=== PATIENT | male | born 1975 | race Caucasian/White ===

== ENCOUNTER → 2019-02-23 12:34 | Outpatient (CLI) | payer SELFPAY ==
[2019-02-23 12:54] LABS: Hematocrit 46.4 % (41-53); Hemoglobin 16.1 g/dL (13.5-17.5); Mean Corpuscular HGB Conc 34.7 % (30-36); Mean Corpuscular Hemoglobin 29.6 PG (26-34); Mean Corpuscular Volume 85.1 fL (80-100); Platelet Count 282 X10^3/uL (150-400); Red Blood Cell Count 5.45 X10^6/uL (4.5-5.9); Red Cell Distribution Width 13.5 % (11.6-14.8); White Blood Cell Count 10.2 X10^3/uL (4.5-11.0)
[2019-02-23 13:44] LABS: Alanine Aminotransferase 53 IU/L (21-72); Albumin Globulin Ratio 1.3 (1.0-2.8); Alkaline Phosphatase 70 U/L (38-126); Aspartate Aminotransferase 28 IU/L (17-59); Bilirubin Total 0.9 mg/dL (0.2-1.3); Blood Urea Nitrogen 14 mg/dL (9-20); Calcium 9.9 mg/dL (8.4-10.2); Carbon Dioxide 26 mmol/L (22-32); Chloride 101 mmol/L (98-107); Cholesterol 240 mg/dL (140-199); Estimated Glomerular Filt Rate > 60.0 mL/min (>60); Globulin 3.8 g/dL (1.7-4.1); Glucose 91 mg/dL (70-100); HDL Cholesterol 31 mg/dL (40-60); HEMOLYSIS < 15 (0-50); LDL Cholesterol Calculated 148 mg/dL (<100); Potassium 4.1 mmol/L (3.4-5.1); Sodium 140 mmol/L (137-145); Total Protein 8.8 g/dL (6.3-8.2); Triglycerides 307 mg/dL (35-150)
[2019-02-23 14:15] LABS: Prostate Specific Antigen Scrn 1.08 ng/mL (0.1-4.0)
[2019-02-23 14:34] LABS: TSH w/ Reflex to FT4 2.43 uIU/mL (0.47-4.68)
[2019-03-01 14:13] LABS: Testosterone Free 44.4 pg/mL (35.0-155.0); Testosterone Total 237 ng/dL (250-1100)
== END ==
PROVIDERS: Visit Provider Nurse Practitioner
DX: Z00.00 Encounter for general adult medical examination without abnormal findings (principal); R53.83 Other fatigue
CPT/HCPCS: 36415; 80053; 80061; 84402; 84403; 84443; 85027; G0103

== ENCOUNTER → 2019-03-21 10:58 | Outpatient (CLI) | payer SELFPAY ==
[2019-03-21 12:00] LABS: Urine Drug scr, USCG NIDA See Separate Report
== END ==
PROVIDERS: PCP Nurse Practitioner
DX: Z02.1 Encounter for pre-employment examination (principal)
CPT/HCPCS: 81099

== ENCOUNTER → 2021-06-19 13:40 | Outpatient (CLI) | payer OTHER, SELFPAY ==
[2021-06-19 14:18] LABS: Add Manual Diff / Slide Review NO; Basophils Absolute Auto 100 /uL (0-100); Basophils Percent Auto 0.6 % (0-2); Eosinophils Absolute Auto 100 /uL (0-450); Eosinophils Percent Auto 1.8 % (2-4); Hematocrit 45.3 % (41-53); Hemoglobin 15.4 g/dL (13.5-17.5); Lymphocytes Absolute Auto 3900 /uL (1100-4500); Lymphocytes Percent Auto 46.6 % (25-40); Mean Corpuscular HGB Conc 33.9 % (30-36); Mean Corpuscular Hemoglobin 28.6 PG (26-34); Mean Corpuscular Volume 84.5 fL (80-100); Monocytes Absolute Auto 600 /uL (0-900); Neutrophils Absolute Auto 3700 /uL (1500-7000); Platelet Count 229 X10^3/uL (150-400); Red Blood Cell Count 5.37 X10^6/uL (4.5-5.9); Red Cell Distribution Width 14.3 % (11.6-14.8); White Blood Cell Count 8.5 X10^3/uL (4.5-11.0)
[2021-06-19 14:28] LABS: INR 1.1 (0.9-1.3); Prothrombin Time 11.7 SECONDS (10.1-12.7)
[2021-06-19 14:39] LABS: Alanine Aminotransferase 42 IU/L (<50); Albumin 4.9 g/dL (3.5-5.0); Albumin Globulin Ratio 1.6 (1.0-2.8); Alkaline Phosphatase 75 U/L (38-126); Aspartate Aminotransferase 27 IU/L (17-59); BUN Creatinine Ratio 17.3 (6-22); Bilirubin Total 0.7 mg/dL (0.2-1.3); Blood Urea Nitrogen 13 mg/dL (9-20); Calcium 9.9 mg/dL (8.4-10.2); Carbon Dioxide 25 mmol/L (22-32); Chloride 105 mmol/L (98-107); Estimated Glomerular Filt Rate > 60.0 mL/min (>60); Glucose 88 mg/dL (70-100); HEMOLYSIS < 15 (0-50); Hemoglobin A1C% w Est Avg Glu 5.4 % (4.0-6.0); Potassium 4.2 mmol/L (3.4-5.1); Sodium 138 mmol/L (137-145); Total Protein 7.9 g/dL (6.3-8.2)
[2021-06-20 04:36] LABS: Fructosamine 246 umol/L (0-285)
== END ==
PROVIDERS: PCP Nurse Practitioner; Referring Provider Physician Assistant; Visit Provider Physician Assistant
DX: Z01.818 Encounter for other preprocedural examination (principal)
CPT/HCPCS: 36415; 80053; 82985; 83036; 85025; 85610

== ENCOUNTER 2021-09-03 11:15 | Outpatient (RCR) | payer OTHER, SELFPAY ==
--- NOTE | 2021-07-11 16:52 | PT.OIE ---
Current Diagnoses Pain in left knee (07/11/21) Stiffness of left knee, not elsewhere classified (07/11/21) Presence of left artificial knee joint (07/11/21) Visit Care Team Role Provider Type JANETT Delacruz Primary Care Provider Advanced Tool Grinding Technician Specialty: Family Practice Address: [address] [place] [address], [id number] Email: [email or web address] Miguel A Parikh MD Attending Provider Non-Staff Referring Provider Specialty: Medical Address: [address] [place] [address], [id number] Email: Physical Therapy Initial Evaluation PT-OP-A Visit Information Start: 07/11/21 16:20 Freq: Status: Active Protocol: Document 07/11/21 12:00 DCW (Rec: 07/11/21 16:39 DCW [id number]) Out-Patient Physical Therapy Visit Information Visit Information Visit Type Initial Evaluation Visit Start Time 12:00 Visit Stop Time 12:45 Total Visit Minutes 45 Visit Number 1 Number of SENIOR SOLUTIONS CONSULTANT Visits 0 Evaluation Information Evaluation Date 07/11/21 PT-OP-B Current Condition Start: 07/11/21 16:20 Freq: Status: Active Protocol: Document 07/11/21 12:00 DCW (Rec: 07/11/21 16:39 DCW [id number]) Current Condition History of Current Condition Onset Date 06/23/21 Current Complaints Pain and stiffness s/p L TKA History of Current Condition Pt is a 45 year old male presenting 18 days s/p L TKA. Pt reports that he injured his knees when he was [age] years olf, and then at the age of 14, was wrestling and injured them again, and was found to have had his knee cartilage fallen off. 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 Pt underwent a R TKA in March , notes he did PT for a bit, but was too busy with his kids to be able to follow- through, and put in a lot of work rehabbing himself. Notes he does have full ROM in his R , however bilaterally still has fairly severe quad atrophy , mainly due to the decades of having very poor knee extension due to joint degeneration. 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 Pt using bilateral axillary crutches, as he is unable to support himself with the right leg now that the left leg has undergone a TKA. Pt reports after his right TKA, his surgeon noted that his knee was the worst he had ever seen, however found out after his left TKA that the left was somehow even worse. 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 Notes his pain is almost unbearable at night , reporting a 9/10 pain which typically limits his sleep to ~1 hour, but the past two nights has been taking Ambien, which has allowed him to get 3-4 hours of sleep, which feels like I've dies and [facility]. Prior Treatments and Tests Prior PT following R TKA 4 months ago Treatment Goals Patient/Caregiver Goals To be able to get around better playing with his kids PT-OP-C Subjective Start: 07/11/21 16:20 Freq: Status: Active Protocol: Document 07/11/21 12:00 DCW (Rec: 07/11/21 16:39 [facility] [id number]) OP-PT Subjective Patient Comments Patient Comments My right knee isn't great after recovery, but it is still way better than I can ever remember it being. I already have better range of motion, and I mostly did that on my own. You won't have any trouble getting me to do what I need to do. Patient Questionnaires Lower Extremity Functional Scale LEFS Score 0% OP-PT Pain Assessment Pain Assessment Grid Paper Pain Assessment Grid Completed Yes Location Left Knee Intensity 9 Scale Used Numeric (0 - 10) Description Acute,Sharp Other Pain Aggravating Factors Increased pain at night PT-OP-H Neuro Start: 07/11/21 16:20 Freq: Status: Active Protocol: Document 07/11/21 12:00 DCW (Rec: 07/11/21 16:39 [facility] [id number]) Muscle Tone Tone Assessment Bilateral quads Extensor Tone Description Moderate Hypotonicity Muscle Tone Comments Moderate quad atrophy bilaterally PT-OP-J Posture/Palpation/Skin Start: 07/11/21 16:39 Freq: Status: Active Protocol: Document 07/11/21 12:00 DCW (Rec: 07/11/21 16:41 DCW [id number]) Skin Assessment Circumference Measurement 3 Location 10 cm superior to L knee joint Measurement (Centimeters) 46.1 Comments 42.5 2 Location L knee joint line Measurement (Centimeters) 56.2 Comments R=42.1 1 Location 10 cm inferior to L knee joint Measurement (Centimeters) 46.9 Comments R=35.0 Incisional Assessment Incision Appearance/Comments CDI, mild puckering along length of incision PT-OP-K Range of Motion Start: 07/11/21 16:20 Freq: Status: Active Protocol: Document 07/11/21 12:00 DCW (Rec: 07/11/21 16:39 DCW [id number]) Knee Goniometric Range of Motion Knee Right Knee ROM WFL Yes Patient Position Supine Flexion Active (degrees) 123 Extension Active (degrees) 0 Left Knee ROM WFL No Patient Position Supine Flexion Active (degrees) 93 Extension Active (degrees) 8 PT-OP-M Strength Start: 07/11/21 16:20 Freq: Status: Active Protocol: Document 07/11/21 12:00 DCW (Rec: 07/11/21 16:39 DCW [id number]) Knee Strength Knee Manual Muscle Testing Right Flexion (S2) 3 Fair Extension (L3) 4 Good Left Flexion (S2) 2+ Poor+ Extension (L3) 2- Poor- PT-OP-Q Treatments Start: 07/11/21 16:20 Freq: Status: Active Protocol: Document 07/11/21 12:00 DCW (Rec: 07/11/21 16:39 DCW [id number]) Cardio Equipment Recumbent Bicycle Duration (Minutes) 5 Resistance 0 Seat Position 10 Other Multiple full rotations fwd and bkwd Therapeutic Exercises Sitting Exercises 3 Sitting Exercise Name Seated extension stretch 2 Sitting Exercise Name Quad sets Side bilateral 1 Sitting Exercise Name Ankle pumps Side bilateral PT-OP-T Assessment and Plan Start: 07/11/21 16:20 Freq: Status: Active Protocol: Document 07/11/21 12:00 DCW (Rec: 07/11/21 16:52 [facility] [id number]) Physical Therapy Assessment Rehab Potential Rehabilitation Potential Good Evaluation Complexity Number of Personal Factors/Comorbidities 3 or More Number of Body Systems Impaired 4 or More Clinical Presentation at Evaluation Unstable Impairments Impairments Activity Tolerance,Balance, Functional Activities, Functional Mobility,Gait,Pain, ROM,Soft Tissue Mobility, Strength,Tone Goals Four Impairment Pt ambulates with bilateral axillary crutches Campaign Developer Goal (LTG) Pt to ambulate independently without an assistive device at least 500' to demonstrate increased independence for community ambulation, enabling him to interact more easily with his children LTG Duration 09/10/21 Three Impairment Pt exhibits moderate quad atrophy bilaterally Longterm Goal (LTG) Pt to display only mild quad atrophy bilaterally to improve gait and reduce instances of knee buckling LTG Duration 09/10/21 Two Impairment Limited ROM Campaign Developer Goal (LTG) Increased L ROM to 0?-120? to enable him to perform daily activities without any range of motion restriction LTG Duration 09/10/21 One Impairment Pt does not have an appropriate home exercise program Short Term Goal (STG) Pt to be independent and compliant with an appropriate HEP STG Duration 08/11/21 Assessment Summary Assessment Pt presents with significant limitations 18 days s/p L TKA. Pt was suffering from severe, decades-long bilateral knee degeneration, and has multiple secondary symptoms due to the extended nature of the deficits, including bilateral quad atrophy. Pt has recently undergone a R TKA, and has improved ROM to expected post- op levels largely with self- directed care, and pt is very motivated to return as much function as he can. Pt does continue to demonstrate poor pain management, reporting 9/ 10 pain at night with severely impacted sleep. Pt should benefit from skilled therapy focusing on normal post-op care, including strengthening, gait training, balance/ stabilization, scar mobs, joint ROM, and pain-control, with additional possible benefit from focus on Ugandan e-stim to increase bilateral quad contraction to hopefully improve atrophy. Physical Therapy Plan Frequency and Duration Frequency of Treatment 2x/Week Duration of Treatment Two months Plan of Care Start Date 07/11/21 Plan of Care End Date 09/10/21 Therapeutic Interventions Therapeutic Interventions Aquatic Therapy,Balance Training,Gait Training,Home Exercise Program,Joint Mobilizations,Manual Therapy, Neuromuscular Re-education, Patient/Caregiver Education, Self-Care/Home Management,Soft Tissue Mobilization, Therapeutic Activities, Therapeutic Exercises Modalities Cold Pack/Ice Massage,Electric Stimulation,Hot Packs, Ultrasound Next Visit Focus/Plan Next Note Type Treatment Note Next Visit Plan ROM, Strengthening, Ugandan stim, Scar mobs
--- NOTE | 2021-07-11 16:53 | PT.OPPOC ---
Physical, Occupational & Speech Therapy At [facility] Current Diagnoses Pain in left knee (07/11/21) Stiffness of left knee, not elsewhere classified (07/11/21) Presence of left artificial knee joint (07/11/21) Visit Care Team Role Provider Type JANETT Delacruz Primary Care Provider Advanced Hop Worker Specialty: Family Practice Address: [address] [place] [address], [facility] Email: [email or web address] Miguel A Parikh MD Attending Provider Non-Staff Referring Provider Specialty: Medical Address: [address] [place] [address], [id number] Email: Plan Of Care PT-OP-T Assessment and Plan Start: 07/11/21 16:20 Freq: Status: Active Protocol: Document 07/11/21 12:00 DCW (Rec: 07/11/21 16:52 DCW [id number]) Physical Therapy Assessment Rehab Potential Rehabilitation Potential Good Evaluation Complexity Number of Personal Factors/Comorbidities 3 or More Number of Body Systems Impaired 4 or More Clinical Presentation at Evaluation Unstable Impairments Impairments Activity Tolerance,Balance, Functional Activities, Functional Mobility,Gait,Pain, ROM,Soft Tissue Mobility, Strength,Tone Goals Four Impairment Pt ambulates with bilateral axillary crutches [place] Agent Goal (LTG) Pt to ambulate independently without an assistive device at least 500' to demonstrate increased independence for community ambulation, enabling him to interact more easily with his children LTG Duration 09/10/21 Three Impairment Pt exhibits moderate quad atrophy bilaterally [place] Agent Goal (LTG) Pt to display only mild quad atrophy bilaterally to improve gait and reduce instances of knee buckling LTG Duration 09/10/21 Two Impairment Limited ROM [place] Agent Goal (LTG) Increased L ROM to 0?-120? to enable him to perform daily activities without any range of motion restriction LTG Duration 09/10/21 One Impairment Pt does not have an appropriate home exercise program Short Term Goal (STG) Pt to be independent and compliant with an appropriate HEP STG Duration 08/11/21 Assessment Summary Assessment Pt presents with significant limitations 18 days s/p L TKA. Pt was suffering from severe, decades-long bilateral knee degeneration, and has multiple secondary symptoms due to the extended nature of the deficits, including bilateral quad atrophy. Pt has recently undergone a R TKA, and has improved ROM to expected post- op levels largely with self- directed care, and pt is very motivated to return as much function as he can. Pt does continue to demonstrate poor pain management, reporting 9/ 10 pain at night with severely impacted sleep. Pt should benefit from skilled therapy focusing on normal post-op care, including strengthening, gait training, balance/ stabilization, scar mobs, joint ROM, and pain-control, with additional possible benefit from focus on Turkish e-stim to increase bilateral quad contraction to hopefully improve atrophy. Physical Therapy Plan Frequency and Duration Frequency of Treatment 2x/Week Duration of Treatment Two months Plan of Care Start Date 07/11/21 Plan of Care End Date 09/10/21 Therapeutic Interventions Therapeutic Interventions Aquatic Therapy,Balance Training,Gait Training,Home Exercise Program,Joint Mobilizations,Manual Therapy, Neuromuscular Re-education, Patient/Caregiver Education, Self-Care/Home Management,Soft Tissue Mobilization, Therapeutic Activities, Therapeutic Exercises Modalities Cold Pack/Ice Massage,Electric Stimulation,Hot Packs, Ultrasound Next Visit Focus/Plan Next Note Type Treatment Note Next Visit Plan ROM, Strengthening, Turkish stim, Scar mobs Plan of Care Dates Plan of Care Start Date 07/11/21 Plan of Care End Date 09/10/21 Electronically Signed by: Robert Arroyo, PT 07/11/21 1674 Please Sign and Return: I have reviewed this Plan of Care and certify that the skilled therapy services above are required to meet the patient?s needs. Physician Signature Date Printed Name and Credentials Clinical Instructor Signature Printed Name and Credentials
--- NOTE | 2021-07-14 15:45 | PT.OTN ---
Current Diagnoses Pain in left knee (07/14/21) Stiffness of left knee, not elsewhere classified (07/14/21) Presence of left artificial knee joint (07/14/21) Physical Therapy Treatment Note PT-OP-A Visit Information Start: 07/11/21 16:20 Freq: Status: Active Protocol: Document 07/14/21 15:15 DCW (Rec: 07/14/21 15:44 DCW [id number]) Out-Patient Physical Therapy Visit Information Visit Information Visit Type Treatment Note Visit Start Time 15:15 Visit Stop Time 16:00 Total Visit Minutes 45 Visit Number 2 Number of SPECIAL MACHINE STITCHER Visits 0 Evaluation Information Evaluation Date 07/11/21 PT-OP-B Current Condition Start: 07/11/21 16:20 Freq: Status: Active Protocol: Document 07/11/21 12:00 DCW (Rec: 07/11/21 16:39 DCW [id number]) Current Condition History of Current Condition Onset Date 06/23/21 Current Complaints Pain and stiffness s/p L TKA History of Current Condition Pt is a 45 year old male presenting 18 days s/p L TKA. Pt reports that he injured his knees when he was [age] years olf, and then at the age of 14, was wrestling and injured them again, and was found to have had his knee cartilage fallen off. 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 Pt underwent a R TKA in March , notes he did PT for a bit, but was too busy with his kids to be able to follow- through, and put in a lot of work rehabbing himself. Notes he does have full ROM in his R , however bilaterally still has fairly severe quad atrophy , mainly due to the decades of having very poor knee extension due to joint degeneration. 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 Pt using bilateral axillary crutches, as he is unable to support himself with the right leg now that the left leg has undergone a TKA. Pt reports after his right TKA, his surgeon noted that his knee was the worst he had ever seen, however found out after his left TKA that the left was somehow even worse. 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 Notes his pain is almost unbearable at night , reporting a 9/10 pain which typically limits his sleep to ~1 hour, but the past two nights has been taking Ambien, which has allowed him to get 3-4 hours of sleep, which feels like I've dies and gone to [facility]. Prior Treatments and Tests Prior PT following R TKA 4 months ago Treatment Goals Patient/Caregiver Goals To be able to get around better playing with his kids PT-OP-C Subjective Start: 07/11/21 16:20 Freq: Status: Active Protocol: Document 07/14/21 15:15 DCW (Rec: 07/14/21 15:44 DCW [id number]) OP-PT Subjective Patient Comments Patient Comments Pt notes he is really hurting today. PT-OP-H Neuro Start: 07/11/21 16:20 Freq: Status: Active Protocol: Document 07/11/21 12:00 DCW (Rec: 07/11/21 16:39 DCW [id number]) Muscle Tone Tone Assessment Bilateral quads Extensor Tone Description Moderate Hypotonicity Muscle Tone Comments Moderate quad atrophy bilaterally PT-OP-J Posture/Palpation/Skin Start: 07/11/21 16:39 Freq: Status: Active Protocol: Document 07/11/21 12:00 DCW (Rec: 07/11/21 16:41 DCW [id number]) Skin Assessment Circumference Measurement 3 Location 10 cm superior to L knee joint Measurement (Centimeters) 46.1 Comments 42.5 2 Location L knee joint line Measurement (Centimeters) 56.2 Comments R=42.1 1 Location 10 cm inferior to L knee joint Measurement (Centimeters) 46.9 Comments R=35.0 Incisional Assessment Incision Appearance/Comments CDI, mild puckering along length of incision PT-OP-K Range of Motion Start: 07/11/21 16:20 Freq: Status: Active Protocol: Document 07/11/21 12:00 DCW (Rec: 07/11/21 16:39 DCW [id number]) Knee Goniometric Range of Motion Knee Right Knee ROM WFL Yes Patient Position Supine Flexion Active (degrees) 123 Extension Active (degrees) 0 Left Knee ROM WFL No Patient Position Supine Flexion Active (degrees) 93 Extension Active (degrees) 8 PT-OP-M Strength Start: 07/11/21 16:20 Freq: Status: Active Protocol: Document 07/11/21 12:00 DCW (Rec: 07/11/21 16:39 DCW [id number]) Knee Strength Knee Manual Muscle Testing Right Flexion (S2) 3 Fair Extension (L3) 4 Good Left Flexion (S2) 2+ Poor+ Extension (L3) 2- Poor- PT-OP-Q Treatments Start: 07/11/21 16:20 Freq: Status: Active Protocol: Document 07/14/21 15:15 DCW (Rec: 07/14/21 15:44 DCW [id number]) Cardio Equipment Recumbent Bicycle Duration (Minutes) 5 Resistance 0 Seat Position 10 Other Multiple full rotations fwd and bkwd Therapeutic Exercises Standing Exercises 2 Standing Exercise Name Step flexion stretch Side left 1 Standing Exercise Name TKE Side bilateral Resistance Lv 2 Equipment Used T-band Manual Therapy Treatment Soft Tissue Mobilization 1 Body Location L Scar mobilization Intensity/Depth Moderate Body Position Hooklying Joint Mobilizations 1 Joint Patellofemoral Direction Inf/Sup Grade II Body Position Hooklying PT-OP-R Modalities Start: 07/11/21 16:20 Freq: Status: Active Protocol: Document 07/14/21 15:15 DCW (Rec: 07/14/21 15:44 DCW [id number]) Electric Stimulation Electric Stimulation Interferential Current (IFC) Body Location L knee Duration (Minutes) 15 Intensity 17 Patient Position Hooklying Combined With Heat/Cold Cold Pack PT-OP-T Assessment and Plan Start: 07/11/21 16:20 Freq: Status: Active Protocol: Document 07/14/21 15:15 DCW (Rec: 07/14/21 15:44 DCW [id number]) Physical Therapy Assessment Impairments Impairments Activity Tolerance,Balance, Functional Activities, Functional Mobility,Gait,Pain, ROM,Soft Tissue Mobility, Strength,Tone Goals Four Impairment Pt ambulates with bilateral axillary crutches Intermediate Goal (LTG) Pt to ambulate independently without an assistive device at least 500' to demonstrate increased independence for community ambulation, enabling him to interact more easily with his children LTG Duration 09/10/21 Three Impairment Pt exhibits moderate quad atrophy bilaterally Retail Wireless Sales Consultant Goal (LTG) Pt to display only mild quad atrophy bilaterally to improve gait and reduce instances of knee buckling LTG Duration 09/10/21 Two Impairment Limited ROM Intermediate Goal (LTG) Increased L ROM to 0?-120? to enable him to perform daily activities without any range of motion restriction LTG Duration 09/10/21 One Impairment Pt does not have an appropriate home exercise program Short Term Goal (STG) Pt to be independent and compliant with an appropriate HEP STG Duration 08/11/21 Assessment Summary Assessment Pt struggling with pain control, tends to push himself too far with most activities. Trial of e-stim to help with pain., hopefully carry-over to improve sleep. 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 Physical Therapy Plan Frequency and Duration Frequency of Treatment 2x/Week Duration of Treatment Two months Plan of Care Start Date 07/11/21 Plan of Care End Date 09/10/21 Therapeutic Interventions Therapeutic Interventions Aquatic Therapy,Balance Training,Gait Training,Home Exercise Program,Joint Mobilizations,Manual Therapy, Neuromuscular Re-education, Patient/Caregiver Education, Self-Care/Home Management,Soft Tissue Mobilization, Therapeutic Activities, Therapeutic Exercises Modalities Cold Pack/Ice Massage,Electric Stimulation,Hot Packs, Ultrasound Next Visit Focus/Plan Next Note Type Treatment Note Next Visit Plan ROM, Strengthening, Fijian stim, Scar mobs
--- NOTE | 2021-07-18 15:59 | PT.OTN ---
Current Diagnoses Pain in left knee (07/18/21) Stiffness of left knee, not elsewhere classified (07/18/21) Presence of left artificial knee joint (07/18/21) Physical Therapy Treatment Note PT-OP-A Visit Information Start: 07/11/21 16:20 Freq: Status: Active Protocol: Document 07/18/21 15:15 DCW (Rec: 07/18/21 15:58 DCW [id number]) Out-Patient Physical Therapy Visit Information Visit Information Visit Type Treatment Note Visit Start Time 15:15 Visit Stop Time 16:00 Total Visit Minutes 45 Visit Number 3 Number of CLOTH MEASURER Visits 0 Evaluation Information Evaluation Date 07/11/21 PT-OP-B Current Condition Start: 07/11/21 16:20 Freq: Status: Active Protocol: Document 07/11/21 12:00 DCW (Rec: 07/11/21 16:39 DCW [id number]) Current Condition History of Current Condition Onset Date 06/23/21 Current Complaints Pain and stiffness s/p L TKA History of Current Condition Pt is a 45 year old male presenting 18 days s/p L TKA. Pt reports that he injured his knees when he was [age] years olf, and then at the age of 14, was wrestling and injured them again, and was found to have had his knee cartilage fallen off. 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 Pt underwent a R TKA in March , notes he did PT for a bit, but was too busy with his kids to be able to follow- through, and put in a lot of work rehabbing himself. Notes he does have full ROM in his R , however bilaterally still has fairly severe quad atrophy , mainly due to the decades of having very poor knee extension due to joint degeneration. 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 Pt using bilateral axillary crutches, as he is unable to support himself with the right leg now that the left leg has undergone a TKA. Pt reports after his right TKA, his surgeon noted that his knee was the worst he had ever seen, however found out after his left TKA that the left was somehow even worse. 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 Notes his pain is almost unbearable at night , reporting a 9/10 pain which typically limits his sleep to ~1 hour, but the past two nights has been taking Ambien, which has allowed him to get 3-4 hours of sleep, which feels [facility]. Prior Treatments and Tests Prior PT following R TKA 4 months ago Treatment Goals Patient/Caregiver Goals To be able to get around better playing with his kids PT-OP-C Subjective Start: 07/11/21 16:20 Freq: Status: Active Protocol: Document 07/18/21 15:15 DCW (Rec: 07/18/21 15:58 DCW [id number]) OP-PT Subjective Patient Comments Patient Comments Just getting through it one day at a time. PT-OP-H Neuro Start: 07/11/21 16:20 Freq: Status: Active Protocol: Document 07/11/21 12:00 DCW (Rec: 07/11/21 16:39 DCW [id number]) Muscle Tone Tone Assessment Bilateral quads Extensor Tone Description Moderate Hypotonicity Muscle Tone Comments Moderate quad atrophy bilaterally PT-OP-J Posture/Palpation/Skin Start: 07/11/21 16:39 Freq: Status: Active Protocol: Document 07/11/21 12:00 DCW (Rec: 07/11/21 16:41 DCW [id number]) Skin Assessment Circumference Measurement 3 Location 10 cm superior to L knee joint Measurement (Centimeters) 46.1 Comments 42.5 2 Location L knee joint line Measurement (Centimeters) 56.2 Comments R=42.1 1 Location 10 cm inferior to L knee joint Measurement (Centimeters) 46.9 Comments R=35.0 Incisional Assessment Incision Appearance/Comments CDI, mild puckering along length of incision PT-OP-K Range of Motion Start: 07/11/21 16:20 Freq: Status: Active Protocol: Document 07/11/21 12:00 DCW (Rec: 07/11/21 16:39 DCW [id number]) Knee Goniometric Range of Motion Knee Right Knee ROM WFL Yes Patient Position Supine Flexion Active (degrees) 123 Extension Active (degrees) 0 Left Knee ROM WFL No Patient Position Supine Flexion Active (degrees) 93 Extension Active (degrees) 8 PT-OP-M Strength Start: 07/11/21 16:20 Freq: Status: Active Protocol: Document 07/11/21 12:00 DCW (Rec: 07/11/21 16:39 DCW [id number]) Knee Strength Knee Manual Muscle Testing Right Flexion (S2) 3 Fair Extension (L3) 4 Good Left Flexion (S2) 2+ Poor+ Extension (L3) 2- Poor- PT-OP-Q Treatments Start: 07/11/21 16:20 Freq: Status: Active Protocol: Document 07/18/21 15:15 DCW (Rec: 07/18/21 15:58 DCW [id number]) Cardio Equipment Recumbent Bicycle Duration (Minutes) 6 Resistance 0 Seat Position 10 Gym Equipment Shuttle Recovery Bilateral Squats Resistance 50# Reps/Time hold at flex end-range Therapeutic Exercises Standing Exercises 2 Standing Exercise Name Step flexion stretch Side left 1 Standing Exercise Name TKE Side bilateral Resistance Lv 2 Equipment Used T-band Manual Therapy Treatment Soft Tissue Mobilization 1 Body Location L Scar mobilization Intensity/Depth Moderate Body Position Hooklying Joint Mobilizations 1 Joint Patellofemoral Direction Inf/Sup Grade II Body Position Hooklying PT-OP-R Modalities Start: 07/11/21 16:20 Freq: Status: Active Protocol: Document 07/18/21 15:15 DCW (Rec: 07/18/21 15:58 DCW [id number]) Electric Stimulation Electric Stimulation Montserratian Stimulation Body Location R Quad Duration (Minutes) 10 Intensity 30 Frequency 5 on/5 off Patient Position Hooklying Comments SAQ PT-OP-T Assessment and Plan Start: 07/11/21 16:20 Freq: Status: Active Protocol: Document 07/18/21 15:15 DCW (Rec: 07/18/21 15:58 DCW [id number]) Physical Therapy Assessment Impairments Impairments Activity Tolerance,Balance, Functional Activities, Functional Mobility,Gait,Pain, ROM,Soft Tissue Mobility, Strength,Tone Goals Four Impairment Pt ambulates with bilateral axillary crutches Half-Way Goal (LTG) Pt to ambulate independently without an assistive device at least 500' to demonstrate increased independence for community ambulation, enabling him to interact more easily with his children LTG Duration 09/10/21 Three Impairment Pt exhibits moderate quad atrophy bilaterally Hoseman Goal (LTG) Pt to display only mild quad atrophy bilaterally to improve gait and reduce instances of knee buckling LTG Duration 09/10/21 Two Impairment Limited ROM Half-Way Goal (LTG) Increased L ROM to 0?-120? to enable him to perform daily activities without any range of motion restriction LTG Duration 09/10/21 One Impairment Pt does not have an appropriate home exercise program Short Term Goal (STG) Pt to be independent and compliant with an appropriate HEP STG Duration 08/11/21 Assessment Summary Assessment Showing some increased ROM today; PROM 111, AROM 108 for left knee flexion. Pt concerned about quad atrophy, trial of Montserratian stim on R quad today, pt struggled to tolerate high enough intensity to actually get quad contraction, but was able to perform SAQs during entire 10 min stim session Physical Therapy Plan Frequency and Duration Frequency of Treatment 2x/Week Duration of Treatment Two months Plan of Care Start Date 07/11/21 Plan of Care End Date 09/10/21 Therapeutic Interventions Therapeutic Interventions Aquatic Therapy,Balance Training,Gait Training,Home Exercise Program,Joint Mobilizations,Manual Therapy, Neuromuscular Re-education, Patient/Caregiver Education, Self-Care/Home Management,Soft Tissue Mobilization, Therapeutic Activities, Therapeutic Exercises Modalities Cold Pack/Ice Massage,Electric Stimulation,Hot Packs, Ultrasound Next Visit Focus/Plan Next Note Type Treatment Note Next Visit Plan ROM, Strengthening, Montserratian stim, Scar mobs
--- NOTE | 2021-07-21 10:31 | PT.OTN ---
Current Diagnoses Pain in left knee (07/21/21) Stiffness of left knee, not elsewhere classified (07/21/21) Presence of left artificial knee joint (07/21/21) Physical Therapy Treatment Note PT-OP-A Visit Information Start: 07/11/21 16:20 Freq: Status: Active Protocol: Document 07/21/21 09:45 DCW (Rec: 07/21/21 10:31 DCW [id number]) Out-Patient Physical Therapy Visit Information Visit Information Visit Type Treatment Note Visit Start Time 09:45 Visit Stop Time 10:35 Total Visit Minutes 50 Visit Number 4 Number of MITTEN STITCHER Visits 0 Evaluation Information Evaluation Date 07/11/21 PT-OP-B Current Condition Start: 07/11/21 16:20 Freq: Status: Active Protocol: Document 07/11/21 12:00 DCW (Rec: 07/11/21 16:39 DCW [id number]) Current Condition History of Current Condition Onset Date 06/23/21 Current Complaints Pain and stiffness s/p L TKA History of Current Condition Pt is a 45 year old male presenting 18 days s/p L TKA. Pt reports that he injured his knees when he was [age] years olf, and then at the age of 14, was wrestling and injured them again, and was found to have had his knee cartilage fallen off. 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 Pt underwent a R TKA in March , notes he did PT for a bit, but was too busy with his kids to be able to follow- through, and put in a lot of work rehabbing himself. Notes he does have full ROM in his R , however bilaterally still has fairly severe quad atrophy , mainly due to the decades of having very poor knee extension due to joint degeneration. 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 Pt using bilateral axillary crutches, as he is unable to support himself with the right leg now that the left leg has undergone a TKA. Pt reports after his right TKA, his surgeon noted that his knee was the worst he had ever seen, however found out after his left TKA that the left was somehow even worse. 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 Notes his pain is almost unbearable at night , reporting a 9/10 pain which typically limits his sleep to ~1 hour, but the past two nights has been taking Ambien, which has allowed him to get 3-4 hours of sleep, which feels [facility] Prior Treatments and Tests Prior PT following R TKA 4 months ago Treatment Goals Patient/Caregiver Goals To be able to get around better playing with his kids PT-OP-C Subjective Start: 07/11/21 16:20 Freq: Status: Active Protocol: Document 07/21/21 09:45 DCW (Rec: 07/21/21 10:31 DCW [id number]) OP-PT Subjective Patient Comments Patient Comments I'm pretty sore, to be honest . [place] went to a pumpkin [place] yesterday, and I did a lot of walking. PT-OP-H Neuro Start: 07/11/21 16:20 Freq: Status: Active Protocol: Document 07/11/21 12:00 DCW (Rec: 07/11/21 16:39 DCW [id number]) Muscle Tone Tone Assessment Bilateral quads Extensor Tone Description Moderate Hypotonicity Muscle Tone Comments Moderate quad atrophy bilaterally PT-OP-J Posture/Palpation/Skin Start: 07/11/21 16:39 Freq: Status: Active Protocol: Document 07/11/21 12:00 DCW (Rec: 07/11/21 16:41 DCW [id number]) Skin Assessment Circumference Measurement 3 Location 10 cm superior to L knee joint Measurement (Centimeters) 46.1 Comments 42.5 2 Location L knee joint line Measurement (Centimeters) 56.2 Comments R=42.1 1 Location 10 cm inferior to L knee joint Measurement (Centimeters) 46.9 Comments R=35.0 Incisional Assessment Incision Appearance/Comments CDI, mild puckering along length of incision PT-OP-K Range of Motion Start: 07/11/21 16:20 Freq: Status: Active Protocol: Document 07/11/21 12:00 DCW (Rec: 07/11/21 16:39 DCW [id number]) Knee Goniometric Range of Motion Knee Right Knee ROM WFL Yes Patient Position Supine Flexion Active (degrees) 123 Extension Active (degrees) 0 Left Knee ROM WFL No Patient Position Supine Flexion Active (degrees) 93 Extension Active (degrees) 8 PT-OP-M Strength Start: 07/11/21 16:20 Freq: Status: Active Protocol: Document 07/11/21 12:00 DCW (Rec: 07/11/21 16:39 DCW [id number]) Knee Strength Knee Manual Muscle Testing Right Flexion (S2) 3 Fair Extension (L3) 4 Good Left Flexion (S2) 2+ Poor+ Extension (L3) 2- Poor- PT-OP-Q Treatments Start: 07/11/21 16:20 Freq: Status: Active Protocol: Document 07/21/21 09:45 DCW (Rec: 07/21/21 10:31 DCW [id number]) Cardio Equipment Recumbent Bicycle Duration (Minutes) 5 Resistance 0 Seat Position 9 Gym Equipment Shuttle Recovery Bilateral Squats Resistance 75# Therapeutic Exercises Standing Exercises 3 Standing Exercise Name Hip Extension Side bilateral Resistance Yellow Equipment Used T-band Comments attempted abd, stopped d/t pain complaints 1 Standing Exercise Name TKE Side bilateral Resistance Lv 2 Equipment Used T-band Manual Therapy Treatment Soft Tissue Mobilization 1 Body Location L Scar mobilization Intensity/Depth Moderate Body Position Hooklying Joint Mobilizations 1 Joint Patellofemoral Direction Inf/Sup Grade II Body Position Hooklying PT-OP-R Modalities Start: 07/11/21 16:20 Freq: Status: Active Protocol: Document 07/21/21 09:45 DCW (Rec: 07/21/21 10:31 DCW [id number]) Electric Stimulation Electric Stimulation Nepalese Stimulation Body Location B Quad Duration (Minutes) 10 Intensity 27 Frequency 4 on/12 off Patient Position Hooklying Comments SAQ PT-OP-T Assessment and Plan Start: 07/11/21 16:20 Freq: Status: Active Protocol: Document 07/21/21 09:45 DCW (Rec: 07/21/21 10:31 DCW [id number]) Physical Therapy Assessment Impairments Impairments Activity Tolerance,Balance, Functional Activities, Functional Mobility,Gait,Pain, ROM,Soft Tissue Mobility, Strength,Tone Goals Four Impairment Pt ambulates with bilateral axillary crutches Assisted Goal (LTG) Pt to ambulate independently without an assistive device at least 500' to demonstrate increased independence for community ambulation, enabling him to interact more easily with his children LTG Duration 09/10/21 Three Impairment Pt exhibits moderate quad atrophy bilaterally Assisted Goal (LTG) Pt to display only mild quad atrophy bilaterally to improve gait and reduce instances of knee buckling LTG Duration 09/10/21 Two Impairment Limited ROM Crime Scene Photographer Goal (LTG) Increased L ROM to 0?-120? to enable him to perform daily activities without any range of motion restriction LTG Duration 09/10/21 One Impairment Pt does not have an appropriate home exercise program Short Term Goal (STG) Pt to be independent and compliant with an appropriate HEP STG Duration 08/11/21 Assessment Summary Assessment Pt still struggling a lot with pain control, not sleeping well, activity limited due to pain in bilateral knees. Physical Therapy Plan Frequency and Duration Frequency of Treatment 2x/Week Duration of Treatment Two months Plan of Care Start Date 07/11/21 Plan of Care End Date 09/10/21 Therapeutic Interventions Therapeutic Interventions Aquatic Therapy,Balance Training,Gait Training,Home Exercise Program,Joint Mobilizations,Manual Therapy, Neuromuscular Re-education, Patient/Caregiver Education, Self-Care/Home Management,Soft Tissue Mobilization, Therapeutic Activities, Therapeutic Exercises Modalities Cold Pack/Ice Massage,Electric Stimulation,Hot Packs, Ultrasound Next Visit Focus/Plan Next Note Type Treatment Note Next Visit Plan ROM, Strengthening, Nepalese stim, Scar mobs
--- NOTE | 2021-07-23 14:28 | PT.OTN ---
Current Diagnoses Pain in left knee (07/23/21) Stiffness of left knee, not elsewhere classified (07/23/21) Presence of left artificial knee joint (07/23/21) Physical Therapy Treatment Note PT-OP-A Visit Information Start: 07/11/21 16:20 Freq: Status: Active Protocol: Document 07/23/21 13:45 DCW (Rec: 07/23/21 14:28 DCW [id number]) Out-Patient Physical Therapy Visit Information Visit Information Visit Type Treatment Note Visit Start Time 13:45 Visit Stop Time 14:30 Total Visit Minutes 45 Visit Number 5 Number of RURAL MAIL CONTRACTOR Visits 0 Evaluation Information Evaluation Date 07/11/21 PT-OP-B Current Condition Start: 07/11/21 16:20 Freq: Status: Active Protocol: Document 07/11/21 12:00 DCW (Rec: 07/11/21 16:39 DCW [id number]) Current Condition History of Current Condition Onset Date 06/23/21 Current Complaints Pain and stiffness s/p L TKA History of Current Condition Pt is a 45 year old male presenting 18 days s/p L TKA. Pt reports that he injured his knees when he was [age] years olf, and then at the age of 14, was wrestling and injured them again, and was found to have had his knee cartilage fallen off. 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 Pt underwent a R TKA in March , notes he did PT for a bit, but was too busy with his kids to be able to follow- through, and put in a lot of work rehabbing himself. Notes he does have full ROM in his R , however bilaterally still has fairly severe quad atrophy , mainly due to the decades of having very poor knee extension due to joint degeneration. 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 Pt using bilateral axillary crutches, as he is unable to support himself with the right leg now that the left leg has undergone a TKA. Pt reports after his right TKA, his surgeon noted that his knee was the worst he had ever seen, however found out after his left TKA that the left was somehow even worse. 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 Notes his pain is almost unbearable at night , reporting a 9/10 pain which typically limits his sleep to ~1 hour, but the past two nights has been taking Ambien, which has allowed him to get 3-4 hours of sleep, which feels like I've dies and gone to [facility]. Prior Treatments and Tests Prior PT following R TKA 4 months ago Treatment Goals Patient/Caregiver Goals To be able to get around better playing with his kids PT-OP-C Subjective Start: 07/11/21 16:20 Freq: Status: Active Protocol: Document 07/23/21 13:45 DCW (Rec: 07/23/21 14:28 DCW [id number]) OP-PT Subjective Patient Comments Patient Comments Pt still having sleep difficulty, even with ambian. PT-OP-H Neuro Start: 07/11/21 16:20 Freq: Status: Active Protocol: Document 07/11/21 12:00 DCW (Rec: 07/11/21 16:39 DCW [id number]) Muscle Tone Tone Assessment Bilateral quads Extensor Tone Description Moderate Hypotonicity Muscle Tone Comments Moderate quad atrophy bilaterally PT-OP-J Posture/Palpation/Skin Start: 07/11/21 16:39 Freq: Status: Active Protocol: Document 07/11/21 12:00 DCW (Rec: 07/11/21 16:41 DCW [id number]) Skin Assessment Circumference Measurement 3 Location 10 cm superior to L knee joint Measurement (Centimeters) 46.1 Comments 42.5 2 Location L knee joint line Measurement (Centimeters) 56.2 Comments R=42.1 1 Location 10 cm inferior to L knee joint Measurement (Centimeters) 46.9 Comments R=35.0 Incisional Assessment Incision Appearance/Comments CDI, mild puckering along length of incision PT-OP-K Range of Motion Start: 07/11/21 16:20 Freq: Status: Active Protocol: Document 07/11/21 12:00 DCW (Rec: 07/11/21 16:39 DCW [id number]) Knee Goniometric Range of Motion Knee Right Knee ROM WFL Yes Patient Position Supine Flexion Active (degrees) 123 Extension Active (degrees) 0 Left Knee ROM WFL No Patient Position Supine Flexion Active (degrees) 93 Extension Active (degrees) 8 PT-OP-M Strength Start: 07/11/21 16:20 Freq: Status: Active Protocol: Document 07/11/21 12:00 DCW (Rec: 07/11/21 16:39 DCW [id number]) Knee Strength Knee Manual Muscle Testing Right Flexion (S2) 3 Fair Extension (L3) 4 Good Left Flexion (S2) 2+ Poor+ Extension (L3) 2- Poor- PT-OP-Q Treatments Start: 07/11/21 16:20 Freq: Status: Active Protocol: Document 07/23/21 13:45 DCW (Rec: 07/23/21 14:28 DCW [id number]) Cardio Equipment Recumbent Bicycle Duration (Minutes) 6 Resistance 0 Seat Position 9 Therapeutic Exercises Standing Exercises 2 Standing Exercise Name Step flexion stretch Side left 1 Standing Exercise Name TKE Side bilateral Resistance Lv 2 Equipment Used T-band Manual Therapy Treatment Soft Tissue Mobilization 1 Body Location L Scar mobilization Intensity/Depth Moderate Body Position Hooklying Joint Mobilizations 1 Joint Patellofemoral Direction Inf/Sup Grade II Body Position Hooklying PT-OP-R Modalities Start: 07/11/21 16:20 Freq: Status: Active Protocol: Document 07/23/21 13:45 DCW (Rec: 07/23/21 14:28 DCW [id number]) Electric Stimulation Electric Stimulation Jamaican Stimulation Body Location B Quad Duration (Minutes) 10 Intensity 31 Frequency 4 on/12 off Patient Position Hooklying Comments SAQ PT-OP-T Assessment and Plan Start: 07/11/21 16:20 Freq: Status: Active Protocol: Document 07/23/21 13:45 DCW (Rec: 07/23/21 14:28 DCW [id number]) Physical Therapy Assessment Assessment Summary Assessment Pt slowly progressing ROM, measuring today PROM 115, AROM 111 with left knee flexion. Pt hyper focused on every twinge and pain, anxious for he recovery to go as smoothly as possible. Pt is likely doing much better than he thinks four weeks out, but difficult to convince him of this. Physical Therapy Plan Frequency and Duration Frequency of Treatment 2x/Week Duration of Treatment Two months Plan of Care Start Date 07/11/21 Plan of Care End Date 09/10/21 Therapeutic Interventions Therapeutic Interventions Aquatic Therapy,Balance Training,Gait Training,Home Exercise Program,Joint Mobilizations,Manual Therapy, Neuromuscular Re-education, Patient/Caregiver Education, Self-Care/Home Management,Soft Tissue Mobilization, Therapeutic Activities, Therapeutic Exercises Modalities Cold Pack/Ice Massage,Electric Stimulation,Hot Packs, Ultrasound Next Visit Focus/Plan Next Note Type Treatment Note Next Visit Plan ROM, Strengthening, Jamaican stim, Scar mobs
--- NOTE | 2021-08-08 10:28 | PT.OTN ---
Current Diagnoses Pain in left knee (08/08/21) Stiffness of left knee, not elsewhere classified (08/08/21) Presence of left artificial knee joint (08/08/21) Physical Therapy Treatment Note PT-OP-A Visit Information Start: 07/11/21 16:20 Freq: Status: Active Protocol: Document 08/08/21 09:45 DCW (Rec: 08/08/21 10:28 DCW [id number]) Out-Patient Physical Therapy Visit Information Visit Information Visit Type Treatment Note Visit Start Time 09:45 Visit Stop Time 10:35 Total Visit Minutes 50 Visit Number 6 Number of TRAINING COORDINATOR Visits 0 Evaluation Information Evaluation Date 07/11/21 PT-OP-B Current Condition Start: 07/11/21 16:20 Freq: Status: Active Protocol: Document 07/11/21 12:00 DCW (Rec: 07/11/21 16:39 DCW [id number]) Current Condition History of Current Condition Onset Date 06/23/21 Current Complaints Pain and stiffness s/p L TKA History of Current Condition Pt is a 45 year old male presenting 18 days s/p L TKA. Pt reports that he injured his knees when he was [age] years olf, and then at the age of 14, was wrestling and injured them again, and was found to have had his knee cartilage fallen off. 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 Pt underwent a R TKA in March , notes he did PT for a bit, but was too busy with his kids to be able to follow- through, and put in a lot of work rehabbing himself. Notes he does have full ROM in his R , however bilaterally still has fairly severe quad atrophy , mainly due to the decades of having very poor knee extension due to joint degeneration. 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 Pt using bilateral axillary crutches, as he is unable to support himself with the right leg now that the left leg has undergone a TKA. Pt reports after his right TKA, his surgeon noted that his knee was the worst he had ever seen, however found out after his left TKA that the left was somehow even worse. 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 Notes his pain is almost unbearable at night , reporting a 9/10 pain which typically limits his sleep to ~1 hour, but the past two nights has been taking Ambien, which has allowed him to get 3-4 hours of sleep, which feels like I've dies and gone to [facility]. 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 PT-OP-H Neuro Start: 07/11/21 16:20 Freq: Status: Active Protocol: Document 07/11/21 12:00 DCW (Rec: 07/11/21 16:39 DCW [id number]) Muscle Tone Tone Assessment Bilateral quads Extensor Tone Description Moderate Hypotonicity Muscle Tone Comments Moderate quad atrophy bilaterally PT-OP-J Posture/Palpation/Skin Start: 07/11/21 16:39 Freq: Status: Active Protocol: Document 07/11/21 12:00 DCW (Rec: 07/11/21 16:41 DCW [id number]) Skin Assessment Circumference Measurement 3 Location 10 cm superior to L knee joint Measurement (Centimeters) 46.1 Comments 42.5 2 Location L knee joint line Measurement (Centimeters) 56.2 Comments R=42.1 1 Location 10 cm inferior to L knee joint Measurement (Centimeters) 46.9 Comments R=35.0 Incisional Assessment Incision Appearance/Comments CDI, mild puckering along length of incision PT-OP-K Range of Motion Start: 07/11/21 16:20 Freq: Status: Active Protocol: Document 07/11/21 12:00 DCW (Rec: 07/11/21 16:39 DCW [id number]) Knee Goniometric Range of Motion Knee Right Knee ROM WFL Yes Patient Position Supine Flexion Active (degrees) 123 Extension Active (degrees) 0 Left Knee ROM WFL No Patient Position Supine Flexion Active (degrees) 93 Extension Active (degrees) 8 PT-OP-M Strength Start: 07/11/21 16:20 Freq: Status: Active Protocol: Document 07/11/21 12:00 DCW (Rec: 07/11/21 16:39 DCW [id number]) Knee Strength Knee Manual Muscle Testing Right Flexion (S2) 3 Fair Extension (L3) 4 Good Left Flexion (S2) 2+ Poor+ Extension (L3) 2- Poor- PT-OP-Q Treatments Start: 07/11/21 16:20 Freq: Status: Active Protocol: Document 08/08/21 09:45 DCW (Rec: 08/08/21 10:28 DCW [id number]) Cardio Equipment Recumbent Bicycle Duration (Minutes) 6 Resistance 2 Seat Position 9 Gym Equipment Shuttle Recovery Unilateral Squats Resistance 37# Bilateral Squats Resistance 75# Therapeutic Exercises Supine Exercises 3 Supine Exercise Name Heel slides Side bilateral 2 Supine Exercise Name SAQ Side bilateral Resistance 4# 1 Supine Exercise Name SLR Side bilateral Resistance 4# Sitting Exercises 1 Sitting Exercise Name LAQ Side bilateral Resistance 4# Manual Therapy Treatment Soft Tissue Mobilization 1 Body Location L Scar mobilization Intensity/Depth Moderate Body Position Hooklying Joint Mobilizations 1 Joint Patellofemoral Direction Inf/Sup Grade II Body Position Hooklying PT-OP-R Modalities Start: 07/11/21 16:20 Freq: Status: Active Protocol: Document 07/23/21 13:45 DCW (Rec: 07/23/21 14:28 DCW [id number]) Electric Stimulation Electric Stimulation Grenadian Stimulation Body Location B Quad Duration (Minutes) 10 Intensity 31 Frequency 4 on/12 off Patient Position Hooklying Comments SAQ PT-OP-T Assessment and Plan Start: 07/11/21 16:20 Freq: Status: Active Protocol: Document 08/08/21 09:45 DCW (Rec: 08/08/21 10:28 DCW [id number]) Physical Therapy Assessment Impairments Impairments Activity Tolerance,Balance, Functional Activities, Functional Mobility,Gait,Pain, ROM,Soft Tissue Mobility, Strength,Tone Goals Four Impairment Pt ambulates with bilateral axillary crutches Protective Signal Repairer Helper Goal (LTG) Pt to ambulate independently without an assistive device at least 500' to demonstrate increased independence for community ambulation, enabling him to interact more easily with his children LTG Duration 09/10/21 Three Impairment Pt exhibits moderate quad atrophy bilaterally Long-Term Goal (LTG) Pt to display only mild quad atrophy bilaterally to improve gait and reduce instances of knee buckling LTG Duration 09/10/21 Two Impairment Limited ROM Long-Term Goal (LTG) Increased L ROM to 0?-120? to enable him to perform daily activities without any range of motion restriction LTG Duration 09/10/21 One Impairment Pt does not have an appropriate home exercise program Short Term Goal (STG) Pt to be independent and compliant with an appropriate HEP STG Duration 08/11/21 Assessment Summary Assessment L knee AROM 4-114 degrees, R knee AROM 0-126. Showing improvement with ROM, need to work on continued bilateral quad strengthening. Physical Therapy Plan Frequency and Duration Frequency of Treatment 2x/Week Duration of Treatment Two months Plan of Care Start Date 07/11/21 Plan of Care End Date 09/10/21 Therapeutic Interventions Therapeutic Interventions Aquatic Therapy,Balance Training,Gait Training,Home Exercise Program,Joint Mobilizations,Manual Therapy, Neuromuscular Re-education, Patient/Caregiver Education, Self-Care/Home Management,Soft Tissue Mobilization, Therapeutic Activities, Therapeutic Exercises Modalities Cold Pack/Ice Massage,Electric Stimulation,Hot Packs, Ultrasound Next Visit Focus/Plan Next Note Type Treatment Note Next Visit Plan ROM, Strengthening, Grenadian stim, Scar mobs
--- NOTE | 2021-08-13 15:15 | PT.OTN ---
Current Diagnoses Pain in left knee (08/13/21) Stiffness of left knee, not elsewhere classified (08/13/21) Presence of left artificial knee joint (08/13/21) Physical Therapy Treatment Note PT-OP-A Visit Information Start: 07/11/21 16:20 Freq: Status: Active Protocol: Document 08/13/21 14:30 DCW (Rec: 08/13/21 15:14 DCW [id number]) Out-Patient Physical Therapy Visit Information Visit Information Visit Type Treatment Note Visit Start Time 14:30 Visit Stop Time 15:15 Total Visit Minutes 45 Visit Number 7 Number of NUTRITIONAL CHEMIST Visits 0 Evaluation Information Evaluation Date 07/11/21 PT-OP-B Current Condition Start: 07/11/21 16:20 Freq: Status: Active Protocol: Document 07/11/21 12:00 DCW (Rec: 07/11/21 16:39 DCW [id number]) Current Condition History of Current Condition Onset Date 06/23/21 Current Complaints Pain and stiffness s/p L TKA History of Current Condition Pt is a 45 year old male presenting 18 days s/p L TKA. Pt reports that he injured his knees when he was [age] years olf, and then at the age of 14, was wrestling and injured them again, and was found to have had his knee cartilage fallen off. 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 Pt underwent a R TKA in March , notes he did PT for a bit, but was too busy with his kids to be able to follow- through, and put in a lot of work rehabbing himself. Notes he does have full ROM in his R , however bilaterally still has fairly severe quad atrophy , mainly due to the decades of having very poor knee extension due to joint degeneration. 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 Pt using bilateral axillary crutches, as he is unable to support himself with the right leg now that the left leg has undergone a TKA. Pt reports after his right TKA, his surgeon noted that his knee was the worst he had ever seen, however found out after his left TKA that the left was somehow even worse. 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 Notes his pain is almost unbearable at night , reporting a 9/10 pain which typically limits his sleep to ~1 hour, but the past two nights has been taking Ambien, which has allowed him to get 3-4 hours of sleep, which feels like I've dies and gone to [facility]. Prior Treatments and Tests Prior PT following R TKA 4 months ago Treatment Goals Patient/Caregiver Goals To be able to get around better playing with his kids PT-OP-C Subjective Start: 07/11/21 16:20 Freq: Status: Active Protocol: Document 08/13/21 14:30 DCW (Rec: 08/13/21 15:14 DCW [id number]) OP-PT Subjective Patient Comments Patient Comments Pt reports he has really been concentrating on improving his gait pattern, walking with significantly less of a limp. PT-OP-H Neuro Start: 07/11/21 16:20 Freq: Status: Active Protocol: Document 07/11/21 12:00 DCW (Rec: 07/11/21 16:39 DCW [id number]) Muscle Tone Tone Assessment Bilateral quads Extensor Tone Description Moderate Hypotonicity Muscle Tone Comments Moderate quad atrophy bilaterally PT-OP-J Posture/Palpation/Skin Start: 07/11/21 16:39 Freq: Status: Active Protocol: Document 07/11/21 12:00 DCW (Rec: 07/11/21 16:41 DCW [id number]) Skin Assessment Circumference Measurement 3 Location 10 cm superior to L knee joint Measurement (Centimeters) 46.1 Comments 42.5 2 Location L knee joint line Measurement (Centimeters) 56.2 Comments R=42.1 1 Location 10 cm inferior to L knee joint Measurement (Centimeters) 46.9 Comments R=35.0 Incisional Assessment Incision Appearance/Comments CDI, mild puckering along length of incision PT-OP-K Range of Motion Start: 07/11/21 16:20 Freq: Status: Active Protocol: Document 07/11/21 12:00 DCW (Rec: 07/11/21 16:39 DCW [id number]) Knee Goniometric Range of Motion Knee Right Knee ROM WFL Yes Patient Position Supine Flexion Active (degrees) 123 Extension Active (degrees) 0 Left Knee ROM WFL No Patient Position Supine Flexion Active (degrees) 93 Extension Active (degrees) 8 PT-OP-M Strength Start: 07/11/21 16:20 Freq: Status: Active Protocol: Document 07/11/21 12:00 DCW (Rec: 07/11/21 16:39 DCW [id number]) Knee Strength Knee Manual Muscle Testing Right Flexion (S2) 3 Fair Extension (L3) 4 Good Left Flexion (S2) 2+ Poor+ Extension (L3) 2- Poor- PT-OP-Q Treatments Start: 07/11/21 16:20 Freq: Status: Active Protocol: Document 08/13/21 14:30 DCW (Rec: 08/13/21 15:14 DCW [id number]) Cardio Equipment Recumbent Bicycle Duration (Minutes) 6 Resistance 3 Seat Position 9 Gym Equipment Shuttle Recovery Unilateral Squats Resistance 50# Bilateral Squats Resistance 100# Therapeutic Exercises Standing Exercises 1 Standing Exercise Name TKE Side bilateral Resistance Lv 2 Equipment Used T-band Other Exercises 1 Other Exercise Name BOSU Lunge Side bilateral Manual Therapy Treatment Soft Tissue Mobilization 1 Body Location L Scar mobilization Intensity/Depth Moderate Body Position Hooklying Joint Mobilizations 1 Joint Patellofemoral Direction Inf/Sup Grade II Body Position Hooklying PT-OP-R Modalities Start: 07/11/21 16:20 Freq: Status: Active Protocol: Document 07/23/21 13:45 DCW (Rec: 07/23/21 14:28 DCW [id number]) Electric Stimulation Electric Stimulation Czech Stimulation Body Location B Quad Duration (Minutes) 10 Intensity 31 Frequency 4 on/12 off Patient Position Hooklying Comments SAQ PT-OP-T Assessment and Plan Start: 07/11/21 16:20 Freq: Status: Active Protocol: Document 08/13/21 14:30 DCW (Rec: 08/13/21 15:14 DCW [id number]) Physical Therapy Assessment Impairments Impairments Activity Tolerance,Balance, Functional Activities, Functional Mobility,Gait,Pain, ROM,Soft Tissue Mobility, Strength,Tone Goals Four Impairment Pt ambulates with bilateral axillary crutches Release Coordinator Goal (LTG) Pt to ambulate independently without an assistive device at least 500' to demonstrate increased independence for community ambulation, enabling him to interact more easily with his children LTG Duration 09/10/21 Three Impairment Pt exhibits moderate quad atrophy bilaterally Penitentiary Goal (LTG) Pt to display only mild quad atrophy bilaterally to improve gait and reduce instances of knee buckling LTG Duration 09/10/21 Two Impairment Limited ROM Release Coordinator Goal (LTG) Increased L ROM to 0?-120? to enable him to perform daily activities without any range of motion restriction LTG Duration 09/10/21 One Impairment Pt does not have an appropriate home exercise program Short Term Goal (STG) Pt to be independent and compliant with an appropriate HEP STG Duration 08/11/21 Assessment Summary Assessment Pt improving significantly with gait, still having pain at lateral knee/ITB insertion. Physical Therapy Plan Frequency and Duration Frequency of Treatment 2x/Week Duration of Treatment Two months Plan of Care Start Date 07/11/21 Plan of Care End Date 09/10/21 Therapeutic Interventions Therapeutic Interventions Aquatic Therapy,Balance Training,Gait Training,Home Exercise Program,Joint Mobilizations,Manual Therapy, Neuromuscular Re-education, Patient/Caregiver Education, Self-Care/Home Management,Soft Tissue Mobilization, Therapeutic Activities, Therapeutic Exercises Modalities Cold Pack/Ice Massage,Electric Stimulation,Hot Packs, Ultrasound Next Visit Focus/Plan Next Note Type Treatment Note Next Visit Plan ROM, Strengthening, Czech stim, Scar mobs
--- NOTE | 2021-08-15 10:30 | PT.OTN ---
Current Diagnoses Pain in left knee (08/15/21) Stiffness of left knee, not elsewhere classified (08/15/21) Presence of left artificial knee joint (08/15/21) Physical Therapy Treatment Note PT-OP-A Visit Information Start: 07/11/21 16:20 Freq: Status: Active Protocol: Document 08/15/21 09:45 DCW (Rec: 08/15/21 10:30 DCW [id number]) Out-Patient Physical Therapy Visit Information Visit Information Visit Type Treatment Note Visit Start Time 09:45 Visit Stop Time 10:35 Total Visit Minutes 50 Visit Number 8 Number of GAMING CAGE CASHIER Visits 0 Evaluation Information Evaluation Date 07/11/21 PT-OP-B Current Condition Start: 07/11/21 16:20 Freq: Status: Active Protocol: Document 07/11/21 12:00 DCW (Rec: 07/11/21 16:39 DCW [id number]) Current Condition History of Current Condition Onset Date 06/23/21 Current Complaints Pain and stiffness s/p L TKA History of Current Condition Pt is a 45 year old male presenting 18 days s/p L TKA. Pt reports that he injured his knees when he was [age] years olf, and then at the age of 14, was wrestling and injured them again, and was found to have had his knee cartilage fallen off. 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 Pt underwent a R TKA in March , notes he did PT for a bit, but was too busy with his kids to be able to follow- through, and put in a lot of work rehabbing himself. Notes he does have full ROM in his R , however bilaterally still has fairly severe quad atrophy , mainly due to the decades of having very poor knee extension due to joint degeneration. 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 Pt using bilateral axillary crutches, as he is unable to support himself with the right leg now that the left leg has undergone a TKA. Pt reports after his right TKA, his surgeon noted that his knee was the worst he had ever seen, however found out after his left TKA that the left was somehow even worse. 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 Notes his pain is almost unbearable at night , reporting a 9/10 pain which typically limits his sleep to ~1 hour, but the past two nights has been taking Ambien, which has allowed him to get 3-4 hours of sleep, which [facility]. Prior Treatments and Tests Prior PT following R TKA 4 months ago Treatment Goals Patient/Caregiver Goals To be able to get around better playing with his kids PT-OP-C Subjective Start: 07/11/21 16:20 Freq: Status: Active Protocol: Document 08/15/21 09:45 DCW (Rec: 08/15/21 10:30 DCW [id number]) OP-PT Subjective Patient Comments Patient Comments Pt a little sore today, but not too bad. PT-OP-H Neuro Start: 07/11/21 16:20 Freq: Status: Active Protocol: Document 07/11/21 12:00 DCW (Rec: 07/11/21 16:39 DCW [id number]) Muscle Tone Tone Assessment Bilateral quads Extensor Tone Description Moderate Hypotonicity Muscle Tone Comments Moderate quad atrophy bilaterally PT-OP-J Posture/Palpation/Skin Start: 07/11/21 16:39 Freq: Status: Active Protocol: Document 07/11/21 12:00 DCW (Rec: 07/11/21 16:41 DCW [id number]) Skin Assessment Circumference Measurement 3 Location 10 cm superior to L knee joint Measurement (Centimeters) 46.1 Comments 42.5 2 Location L knee joint line Measurement (Centimeters) 56.2 Comments R=42.1 1 Location 10 cm inferior to L knee joint Measurement (Centimeters) 46.9 Comments R=35.0 Incisional Assessment Incision Appearance/Comments CDI, mild puckering along length of incision PT-OP-K Range of Motion Start: 07/11/21 16:20 Freq: Status: Active Protocol: Document 07/11/21 12:00 DCW (Rec: 07/11/21 16:39 DCW [id number]) Knee Goniometric Range of Motion Knee Right Knee ROM WFL Yes Patient Position Supine Flexion Active (degrees) 123 Extension Active (degrees) 0 Left Knee ROM WFL No Patient Position Supine Flexion Active (degrees) 93 Extension Active (degrees) 8 PT-OP-M Strength Start: 07/11/21 16:20 Freq: Status: Active Protocol: Document 07/11/21 12:00 DCW (Rec: 07/11/21 16:39 DCW [id number]) Knee Strength Knee Manual Muscle Testing Right Flexion (S2) 3 Fair Extension (L3) 4 Good Left Flexion (S2) 2+ Poor+ Extension (L3) 2- Poor- PT-OP-Q Treatments Start: 07/11/21 16:20 Freq: Status: Active Protocol: Document 08/15/21 09:45 DCW (Rec: 08/15/21 10:30 DCW [id number]) Cardio Equipment Recumbent Bicycle Duration (Minutes) 6 Resistance 4 Seat Position 9 Gym Equipment Shuttle Recovery Unilateral Squats Resistance 50# Bilateral Squats Resistance 100# Therapeutic Exercises Sitting Exercises 1 Sitting Exercise Name LAQ Side bilateral Resistance 5# Standing Exercises 1 Standing Exercise Name TKE Side bilateral Resistance Lv 2 Equipment Used T-band Other Exercises 1 Other Exercise Name BOSU Lunge Side bilateral Manual Therapy Treatment Soft Tissue Mobilization 1 Body Location L Scar mobilization Intensity/Depth Moderate Body Position Hooklying Joint Mobilizations 1 Joint Patellofemoral Direction Inf/Sup Grade II Body Position Hooklying Taping 1 Body Location L ITB I-strip Treatment Focus Inhibition Type of Tape Kinesio Tape PT-OP-R Modalities Start: 07/11/21 16:20 Freq: Status: Active Protocol: Document 07/23/21 13:45 DCW (Rec: 07/23/21 14:28 DCW [id number]) Electric Stimulation Electric Stimulation Icelandic Stimulation Body Location B Quad Duration (Minutes) 10 Intensity 31 Frequency 4 on/12 off Patient Position Hooklying Comments SAQ PT-OP-T Assessment and Plan Start: 07/11/21 16:20 Freq: Status: Active Protocol: Document 08/15/21 09:45 DCW (Rec: 08/15/21 10:30 DCW [id number]) Physical Therapy Assessment Impairments Impairments Activity Tolerance,Balance, Functional Activities, Functional Mobility,Gait,Pain, ROM,Soft Tissue Mobility, Strength,Tone Goals Four Impairment Pt ambulates with bilateral axillary crutches Technical Trainer Goal (LTG) Pt to ambulate independently without an assistive device at least 500' to demonstrate increased independence for community ambulation, enabling him to interact more easily with his children LTG Duration 09/10/21 Three Impairment Pt exhibits moderate quad atrophy bilaterally Assisted Goal (LTG) Pt to display only mild quad atrophy bilaterally to improve gait and reduce instances of knee buckling LTG Duration 09/10/21 Two Impairment Limited ROM Technical Trainer Goal (LTG) Increased L ROM to 0?-120? to enable him to perform daily activities without any range of motion restriction LTG Duration 09/10/21 One Impairment Pt does not have an appropriate home exercise program Short Term Goal (STG) Pt to be independent and compliant with an appropriate HEP STG Duration 08/11/21 Assessment Summary Assessment Trial of K-tape to decrease ITB soreness, pt continuing to have pain along incision. Physical Therapy Plan Frequency and Duration Frequency of Treatment 2x/Week Duration of Treatment Two months Plan of Care Start Date 07/11/21 Plan of Care End Date 09/10/21 Therapeutic Interventions Therapeutic Interventions Aquatic Therapy,Balance Training,Gait Training,Home Exercise Program,Joint Mobilizations,Manual Therapy, Neuromuscular Re-education, Patient/Caregiver Education, Self-Care/Home Management,Soft Tissue Mobilization, Therapeutic Activities, Therapeutic Exercises Modalities Cold Pack/Ice Massage,Electric Stimulation,Hot Packs, Ultrasound Next Visit Focus/Plan Next Note Type Treatment Note Next Visit Plan ROM, Strengthening, Icelandic stim, Scar mobs
--- NOTE | 2021-08-19 12:44 | PT.OTN ---
Current Diagnoses Pain in left knee (08/19/21) Stiffness of left knee, not elsewhere classified (08/19/21) Presence of left artificial knee joint (08/19/21) Physical Therapy Treatment Note PT-OP-A Visit Information Start: 07/11/21 16:20 Freq: Status: Active Protocol: Document 08/19/21 12:00 DCW (Rec: 08/19/21 12:44 DCW [id number]) Out-Patient Physical Therapy Visit Information Visit Information Visit Type Treatment Note Visit Start Time 12:00 Visit Stop Time 12:45 Total Visit Minutes 45 Visit Number 9 Number of FORMATION FRACTURING OPERATOR Visits 0 Evaluation Information Evaluation Date 07/11/21 PT-OP-B Current Condition Start: 07/11/21 16:20 Freq: Status: Active Protocol: Document 07/11/21 12:00 DCW (Rec: 07/11/21 16:39 DCW [id number]) Current Condition History of Current Condition Onset Date 06/23/21 Current Complaints Pain and stiffness s/p L TKA History of Current Condition Pt is a 45 year old male presenting 18 days s/p L TKA. Pt reports that he injured his knees when he was [age] years olf, and then at the age of 14, was wrestling and injured them again, and was found to have had his knee cartilage fallen off. 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 Pt underwent a R TKA in March , notes he did PT for a bit, but was too busy with his kids to be able to follow- through, and put in a lot of work rehabbing himself. Notes he does have full ROM in his R , however bilaterally still has fairly severe quad atrophy , mainly due to the decades of having very poor knee extension due to joint degeneration. 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 Pt using bilateral axillary crutches, as he is unable to support himself with the right leg now that the left leg has undergone a TKA. Pt reports after his right TKA, his surgeon noted that his knee was the worst he had ever seen, however found out after his left TKA that the left was somehow even worse. 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 Notes his pain is almost unbearable at night , reporting a 9/10 pain which typically limits his sleep to ~1 hour, but the past two nights has been taking Ambien, which has allowed him to get 3-4 hours of sleep, which feels like I've dies and gone to [facility]. Prior Treatments and Tests Prior PT following R TKA 4 months ago Treatment Goals Patient/Caregiver Goals To be able to get around better playing with his kids PT-OP-C Subjective Start: 07/11/21 16:20 Freq: Status: Active Protocol: Document 08/19/21 12:00 DCW (Rec: 08/19/21 12:44 DCW [id number]) OP-PT Subjective Patient Comments Patient Comments Pt reports he had some relief from using the K-tape. PT-OP-H Neuro Start: 07/11/21 16:20 Freq: Status: Active Protocol: Document 07/11/21 12:00 DCW (Rec: 07/11/21 16:39 DCW [id number]) Muscle Tone Tone Assessment Bilateral quads Extensor Tone Description Moderate Hypotonicity Muscle Tone Comments Moderate quad atrophy bilaterally PT-OP-J Posture/Palpation/Skin Start: 07/11/21 16:39 Freq: Status: Active Protocol: Document 07/11/21 12:00 DCW (Rec: 07/11/21 16:41 DCW [id number]) Skin Assessment Circumference Measurement 3 Location 10 cm superior to L knee joint Measurement (Centimeters) 46.1 Comments 42.5 2 Location L knee joint line Measurement (Centimeters) 56.2 Comments R=42.1 1 Location 10 cm inferior to L knee joint Measurement (Centimeters) 46.9 Comments R=35.0 Incisional Assessment Incision Appearance/Comments CDI, mild puckering along length of incision PT-OP-K Range of Motion Start: 07/11/21 16:20 Freq: Status: Active Protocol: Document 07/11/21 12:00 DCW (Rec: 07/11/21 16:39 DCW [id number]) Knee Goniometric Range of Motion Knee Right Knee ROM WFL Yes Patient Position Supine Flexion Active (degrees) 123 Extension Active (degrees) 0 Left Knee ROM WFL No Patient Position Supine Flexion Active (degrees) 93 Extension Active (degrees) 8 PT-OP-M Strength Start: 07/11/21 16:20 Freq: Status: Active Protocol: Document 07/11/21 12:00 DCW (Rec: 07/11/21 16:39 DCW [id number]) Knee Strength Knee Manual Muscle Testing Right Flexion (S2) 3 Fair Extension (L3) 4 Good Left Flexion (S2) 2+ Poor+ Extension (L3) 2- Poor- PT-OP-Q Treatments Start: 07/11/21 16:20 Freq: Status: Active Protocol: Document 08/19/21 12:00 DCW (Rec: 08/19/21 12:44 DCW [id number]) Cardio Equipment Recumbent Bicycle Duration (Minutes) 6 Resistance 5 Seat Position 9 Gym Equipment Shuttle Recovery Unilateral Squats Resistance 50# Bilateral Squats Resistance 100# Therapeutic Exercises Supine Exercises 1 Supine Exercise Name Bridging Standing Exercises 2 Standing Exercise Name Step-ups Side bilateral Equipment Used 6 step 1 Standing Exercise Name TKE Side bilateral Resistance Lv 2 Equipment Used T-band Other Exercises 1 Other Exercise Name BOSU Lunge Side bilateral Manual Therapy Treatment Soft Tissue Mobilization 1 Body Location L Scar mobilization Intensity/Depth Moderate Body Position Hooklying Joint Mobilizations 1 Joint Patellofemoral Direction Inf/Sup Grade II Body Position Hooklying Taping 1 Body Location L ITB I-strip Treatment Focus Inhibition Type of Tape Kinesio Tape PT-OP-R Modalities Start: 07/11/21 16:20 Freq: Status: Active Protocol: Document 07/23/21 13:45 DCW (Rec: 07/23/21 14:28 DCW [id number]) Electric Stimulation Electric Stimulation [place] Citizen Stimulation Body Location B Quad Duration (Minutes) 10 Intensity 31 Frequency 4 on/12 off Patient Position Hooklying Comments SAQ PT-OP-T Assessment and Plan Start: 07/11/21 16:20 Freq: Status: Active Protocol: Document 08/19/21 12:00 DCW (Rec: 08/19/21 12:44 DCW [id number]) Physical Therapy Assessment Impairments Impairments Activity Tolerance,Balance, Functional Activities, Functional Mobility,Gait,Pain, ROM,Soft Tissue Mobility, Strength,Tone Goals Four Impairment Pt ambulates with bilateral axillary crutches Usp Goal (LTG) Pt to ambulate independently without an assistive device at least 500' to demonstrate increased independence for community ambulation, enabling him to interact more easily with his children LTG Duration 09/10/21 Three Impairment Pt exhibits moderate quad atrophy bilaterally Usp Goal (LTG) Pt to display only mild quad atrophy bilaterally to improve gait and reduce instances of knee buckling LTG Duration 09/10/21 Two Impairment Limited ROM Usp Goal (LTG) Increased L ROM to 0?-120? to enable him to perform daily activities without any range of motion restriction LTG Duration 09/10/21 One Impairment Pt does not have an appropriate home exercise program Short Term Goal (STG) Pt to be independent and compliant with an appropriate HEP STG Duration 08/11/21 Assessment Summary Assessment Pt showing recent improvement with ROM, gait, and pain levels. Physical Therapy Plan Frequency and Duration Frequency of Treatment 2x/Week Duration of Treatment Two months Plan of Care Start Date 07/11/21 Plan of Care End Date 09/10/21 Therapeutic Interventions Therapeutic Interventions Aquatic Therapy,Balance Training,Gait Training,Home Exercise Program,Joint Mobilizations,Manual Therapy, Neuromuscular Re-education, Patient/Caregiver Education, Self-Care/Home Management,Soft Tissue Mobilization, Therapeutic Activities, Therapeutic Exercises Modalities Cold Pack/Ice Massage,Electric Stimulation,Hot Packs, Ultrasound Next Visit Focus/Plan Next Note Type Treatment Note Next Visit Plan ROM, Strengthening, [place] Citizen stim, Scar mobs
--- NOTE | 2021-08-27 11:57 | PT.OTN ---
Current Diagnoses Pain in left knee (08/27/21) Stiffness of left knee, not elsewhere classified (08/27/21) Presence of left artificial knee joint (08/27/21) Physical Therapy Treatment Note PT-OP-A Visit Information Start: 07/11/21 16:20 Freq: Status: Active Protocol: Document 08/27/21 11:15 DCW (Rec: 08/27/21 11:57 DCW [id number]) Out-Patient Physical Therapy Visit Information Visit Information Visit Type Treatment Note Visit Start Time 11:15 Visit Stop Time 12:00 Total Visit Minutes 45 Visit Number 10 Number of SUGAR PRESSER Visits 0 Evaluation Information Evaluation Date 07/11/21 PT-OP-B Current Condition Start: 07/11/21 16:20 Freq: Status: Active Protocol: Document 07/11/21 12:00 DCW (Rec: 07/11/21 16:39 DCW [id number]) Current Condition History of Current Condition Onset Date 06/23/21 Current Complaints Pain and stiffness s/p L TKA History of Current Condition Pt is a 45 year old male presenting 18 days s/p L TKA. Pt reports that he injured his knees when he was [age] years olf, and then at the age of 14, was wrestling and injured them again, and was found to have had his knee cartilage fallen off. 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 Pt underwent a R TKA in March , notes he did PT for a bit, but was too busy with his kids to be able to follow- through, and put in a lot of work rehabbing himself. Notes he does have full ROM in his R , however bilaterally still has fairly severe quad atrophy , mainly due to the decades of having very poor knee extension due to joint degeneration. 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 Pt using bilateral axillary crutches, as he is unable to support himself with the right leg now that the left leg has undergone a TKA. Pt reports after his right TKA, his surgeon noted that his knee was the worst he had ever seen, however found out after his left TKA that the left was somehow even worse. 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 Notes his pain is almost unbearable at night , reporting a 9/10 pain which typically limits his sleep to ~1 hour, but the past two nights has been taking Ambien, which has allowed him to get 3-4 hours of sleep, which feels like I've dies and gone to [facility]. Prior Treatments and Tests Prior PT following R TKA 4 months ago Treatment Goals Patient/Caregiver Goals To be able to get around better playing with his kids PT-OP-C Subjective Start: 07/11/21 16:20 Freq: Status: Active Protocol: Document 08/27/21 11:15 DCW (Rec: 08/27/21 11:57 DCW [id number]) OP-PT Subjective Patient Comments Patient Comments Pt note his knee is okay, a little sore. Still having a lot of pain with stairs, but that's really my only complaint right now. PT-OP-H Neuro Start: 07/11/21 16:20 Freq: Status: Active Protocol: Document 07/11/21 12:00 DCW (Rec: 07/11/21 16:39 DCW [id number]) Muscle Tone Tone Assessment Bilateral quads Extensor Tone Description Moderate Hypotonicity Muscle Tone Comments Moderate quad atrophy bilaterally PT-OP-J Posture/Palpation/Skin Start: 07/11/21 16:39 Freq: Status: Active Protocol: Document 07/11/21 12:00 DCW (Rec: 07/11/21 16:41 DCW [id number]) Skin Assessment Circumference Measurement 3 Location 10 cm superior to L knee joint Measurement (Centimeters) 46.1 Comments 42.5 2 Location L knee joint line Measurement (Centimeters) 56.2 Comments R=42.1 1 Location 10 cm inferior to L knee joint Measurement (Centimeters) 46.9 Comments R=35.0 Incisional Assessment Incision Appearance/Comments CDI, mild puckering along length of incision PT-OP-K Range of Motion Start: 07/11/21 16:20 Freq: Status: Active Protocol: Document 07/11/21 12:00 DCW (Rec: 07/11/21 16:39 DCW [id number]) Knee Goniometric Range of Motion Knee Right Knee ROM WFL Yes Patient Position Supine Flexion Active (degrees) 123 Extension Active (degrees) 0 Left Knee ROM WFL No Patient Position Supine Flexion Active (degrees) 93 Extension Active (degrees) 8 PT-OP-M Strength Start: 07/11/21 16:20 Freq: Status: Active Protocol: Document 07/11/21 12:00 DCW (Rec: 07/11/21 16:39 DCW [id number]) Knee Strength Knee Manual Muscle Testing Right Flexion (S2) 3 Fair Extension (L3) 4 Good Left Flexion (S2) 2+ Poor+ Extension (L3) 2- Poor- PT-OP-Q Treatments Start: 07/11/21 16:20 Freq: Status: Active Protocol: Document 08/27/21 11:15 DCW (Rec: 08/27/21 11:57 DCW [id number]) Cardio Equipment Recumbent Bicycle Duration (Minutes) 6 Resistance 4 Seat Position 8 Gym Equipment Shuttle Recovery Unilateral Squats Resistance 62# Bilateral Squats Resistance 100# Therapeutic Exercises Sitting Exercises 2 Sitting Exercise Name HS curl Side bilateral Resistance Lv 3 Equipment Used T-band 1 Sitting Exercise Name LAQ Side bilateral Resistance 10# Other Exercises 1 Other Exercise Name BOSU Lunge Side bilateral Manual Therapy Treatment Soft Tissue Mobilization 1 Body Location L Scar mobilization Intensity/Depth Moderate Body Position Hooklying Joint Mobilizations 1 Joint Patellofemoral Direction Inf/Sup Grade II Body Position Hooklying Taping 1 Body Location L ITB I-strip Treatment Focus Inhibition Type of Tape Kinesio Tape PT-OP-R Modalities Start: 07/11/21 16:20 Freq: Status: Active Protocol: Document 07/23/21 13:45 DCW (Rec: 07/23/21 14:28 DCW [id number]) Electric Stimulation Electric Stimulation [place] Stimulation Body Location B Quad Duration (Minutes) 10 Intensity 31 Frequency 4 on/12 off Patient Position Hooklying Comments SAQ PT-OP-T Assessment and Plan Start: 07/11/21 16:20 Freq: Status: Active Protocol: Document 08/27/21 11:15 DCW (Rec: 08/27/21 11:57 DCW [id number]) Physical Therapy Assessment Impairments Impairments Activity Tolerance,Balance, Functional Activities, Functional Mobility,Gait,Pain, ROM,Soft Tissue Mobility, Strength,Tone Goals Four Impairment Pt ambulates with bilateral axillary crutches Chemical Research Technician Goal (LTG) Pt to ambulate independently without an assistive device at least 500' to demonstrate increased independence for community ambulation, enabling him to interact more easily with his children LTG Duration 09/10/21 Three Impairment Pt exhibits moderate quad atrophy bilaterally Fci Goal (LTG) Pt to display only mild quad atrophy bilaterally to improve gait and reduce instances of knee buckling LTG Duration 09/10/21 Two Impairment Limited ROM Fci Goal (LTG) Increased L ROM to 0?-120? to enable him to perform daily activities without any range of motion restriction LTG Duration 09/10/21 One Impairment Pt does not have an appropriate home exercise program Short Term Goal (STG) Pt to be independent and compliant with an appropriate HEP STG Duration 08/11/21 Assessment Summary Assessment Pt continues to progress well, improving gait and strength, getting better quad involvement bilaterally. Physical Therapy Plan Frequency and Duration Frequency of Treatment 2x/Week Duration of Treatment Two months Plan of Care Start Date 07/11/21 Plan of Care End Date 09/10/21 Therapeutic Interventions Therapeutic Interventions Aquatic Therapy,Balance Training,Gait Training,Home Exercise Program,Joint Mobilizations,Manual Therapy, Neuromuscular Re-education, Patient/Caregiver Education, Self-Care/Home Management,Soft Tissue Mobilization, Therapeutic Activities, Therapeutic Exercises Modalities Cold Pack/Ice Massage,Electric Stimulation,Hot Packs, Ultrasound Next Visit Focus/Plan Next Note Type Treatment Note Next Visit Plan ROM, Strengthening, [place] stim, Scar mobs
--- NOTE | 2021-08-29 10:25 | PT.OTN ---
Current Diagnoses Pain in left knee (08/29/21) Stiffness of left knee, not elsewhere classified (08/29/21) Presence of left artificial knee joint (08/29/21) Physical Therapy Treatment Note PT-OP-A Visit Information Start: 07/11/21 16:20 Freq: Status: Active Protocol: Document 08/29/21 09:45 DCW (Rec: 08/29/21 10:25 DCW [id number]) Out-Patient Physical Therapy Visit Information Visit Information Visit Type Treatment Note Visit Start Time 09:45 Visit Stop Time 10:30 Total Visit Minutes 45 Visit Number 11 Number of EXHIBIT TECHNICIAN Visits 0 Evaluation Information Evaluation Date 07/11/21 PT-OP-B Current Condition Start: 07/11/21 16:20 Freq: Status: Active Protocol: Document 07/11/21 12:00 DCW (Rec: 07/11/21 16:39 DCW [id number]) Current Condition History of Current Condition Onset Date 06/23/21 Current Complaints Pain and stiffness s/p L TKA History of Current Condition Pt is a 45 year old male presenting 18 days s/p L TKA. Pt reports that he injured his knees when he was [age] years olf, and then at the age of 14, was wrestling and injured them again, and was found to have had his knee cartilage fallen off. 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 Pt underwent a R TKA in March , notes he did PT for a bit, but was too busy with his kids to be able to follow- through, and put in a lot of work rehabbing himself. Notes he does have full ROM in his R , however bilaterally still has fairly severe quad atrophy , mainly due to the decades of having very poor knee extension due to joint degeneration. 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 Pt using bilateral axillary crutches, as he is unable to support himself with the right leg now that the left leg has undergone a TKA. Pt reports after his right TKA, his surgeon noted that his knee was the worst he had ever seen, however found out after his left TKA that the left was somehow even worse. 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 Notes his pain is almost unbearable at night , reporting a 9/10 pain which typically limits his sleep to ~1 hour, but the past two nights has been taking Ambien, which has allowed him to get 3-4 hours of sleep, which feels like I've dies and gone to [facility]. Prior Treatments and Tests Prior PT following R TKA 4 months ago Treatment Goals Patient/Caregiver Goals To be able to get around better playing with his kids PT-OP-C Subjective Start: 07/11/21 16:20 Freq: Status: Active Protocol: Document 08/29/21 09:45 DCW (Rec: 08/29/21 10:25 DCW [id number]) OP-PT Subjective Patient Comments Patient Comments The quad is kind of sore, we really worked it Wednesday. PT-OP-H Neuro Start: 07/11/21 16:20 Freq: Status: Active Protocol: Document 07/11/21 12:00 DCW (Rec: 07/11/21 16:39 DCW [id number]) Muscle Tone Tone Assessment Bilateral quads Extensor Tone Description Moderate Hypotonicity Muscle Tone Comments Moderate quad atrophy bilaterally PT-OP-J Posture/Palpation/Skin Start: 07/11/21 16:39 Freq: Status: Active Protocol: Document 07/11/21 12:00 DCW (Rec: 07/11/21 16:41 DCW [id number]) Skin Assessment Circumference Measurement 3 Location 10 cm superior to L knee joint Measurement (Centimeters) 46.1 Comments 42.5 2 Location L knee joint line Measurement (Centimeters) 56.2 Comments R=42.1 1 Location 10 cm inferior to L knee joint Measurement (Centimeters) 46.9 Comments R=35.0 Incisional Assessment Incision Appearance/Comments CDI, mild puckering along length of incision PT-OP-K Range of Motion Start: 07/11/21 16:20 Freq: Status: Active Protocol: Document 07/11/21 12:00 DCW (Rec: 07/11/21 16:39 DCW [id number]) Knee Goniometric Range of Motion Knee Right Knee ROM WFL Yes Patient Position Supine Flexion Active (degrees) 123 Extension Active (degrees) 0 Left Knee ROM WFL No Patient Position Supine Flexion Active (degrees) 93 Extension Active (degrees) 8 PT-OP-M Strength Start: 07/11/21 16:20 Freq: Status: Active Protocol: Document 07/11/21 12:00 DCW (Rec: 07/11/21 16:39 DCW [id number]) Knee Strength Knee Manual Muscle Testing Right Flexion (S2) 3 Fair Extension (L3) 4 Good Left Flexion (S2) 2+ Poor+ Extension (L3) 2- Poor- PT-OP-Q Treatments Start: 07/11/21 16:20 Freq: Status: Active Protocol: Document 08/29/21 09:45 DCW (Rec: 08/29/21 10:25 DCW [id number]) Cardio Equipment Recumbent Bicycle Duration (Minutes) 6 Resistance 4 Seat Position 6 Gym Equipment Shuttle Recovery Unilateral Squats Resistance 62# Bilateral Squats Resistance 100# Shuttle Balance Red Details Staggered stance weight shift Therapeutic Exercises Sitting Exercises 2 Sitting Exercise Name HS curl Side bilateral Resistance Lv 3 Equipment Used T-band 1 Sitting Exercise Name LAQ Side bilateral Resistance 10# Standing Exercises 2 Standing Exercise Name Step-ups Side bilateral Equipment Used 6 step 1 Standing Exercise Name TKE Side bilateral Resistance Lv 2 Equipment Used T-band Other Exercises 1 Other Exercise Name BOSU Lunge Side bilateral Manual Therapy Treatment Joint Mobilizations 1 Joint Patellofemoral Direction Inf/Sup Grade II Body Position Hooklying Taping 1 Body Location L ITB I-strip Treatment Focus Inhibition Type of Tape Kinesio Tape PT-OP-R Modalities Start: 07/11/21 16:20 Freq: Status: Active Protocol: Document 07/23/21 13:45 DCW (Rec: 07/23/21 14:28 DCW [id number]) Electric Stimulation Electric Stimulation [place] Stimulation Body Location B Quad Duration (Minutes) 10 Intensity 31 Frequency 4 on/12 off Patient Position Hooklying Comments SAQ PT-OP-T Assessment and Plan Start: 07/11/21 16:20 Freq: Status: Active Protocol: Document 08/29/21 09:45 DCW (Rec: 08/29/21 10:25 DCW [id number]) Physical Therapy Assessment Impairments Impairments Activity Tolerance,Balance, Functional Activities, Functional Mobility,Gait,Pain, ROM,Soft Tissue Mobility, Strength,Tone Goals Four Impairment Pt ambulates with bilateral axillary crutches Fci Goal (LTG) Pt to ambulate independently without an assistive device at least 500' to demonstrate increased independence for community ambulation, enabling him to interact more easily with his children LTG Duration 09/10/21 Three Impairment Pt exhibits moderate quad atrophy bilaterally Fci Goal (LTG) Pt to display only mild quad atrophy bilaterally to improve gait and reduce instances of knee buckling LTG Duration 09/10/21 Two Impairment Limited ROM Senior Ui Designer Goal (LTG) Increased L ROM to 0?-120? to enable him to perform daily activities without any range of motion restriction LTG Duration 09/10/21 One Impairment Pt does not have an appropriate home exercise program Short Term Goal (STG) Pt to be independent and compliant with an appropriate HEP STG Duration 08/11/21 Assessment Summary Assessment Pt feels limited due to left ITB insertion pain, but is otherwise progressing well Physical Therapy Plan Frequency and Duration Frequency of Treatment 2x/Week Duration of Treatment Two months Plan of Care Start Date 07/11/21 Plan of Care End Date 09/10/21 Therapeutic Interventions Therapeutic Interventions Aquatic Therapy,Balance Training,Gait Training,Home Exercise Program,Joint Mobilizations,Manual Therapy, Neuromuscular Re-education, Patient/Caregiver Education, Self-Care/Home Management,Soft Tissue Mobilization, Therapeutic Activities, Therapeutic Exercises Modalities Cold Pack/Ice Massage,Electric Stimulation,Hot Packs, Ultrasound Next Visit Focus/Plan Next Note Type Treatment Note Next Visit Plan ROM, Strengthening, [place] stim, Scar mobs
--- NOTE | 2021-09-03 11:58 | PT.OTN ---
Current Diagnoses Pain in left knee (09/03/21) Stiffness of left knee, not elsewhere classified (09/03/21) Presence of left artificial knee joint (09/03/21) Physical Therapy Treatment Note PT-OP-A Visit Information Start: 07/11/21 16:20 Freq: Status: Active Protocol: Document 09/03/21 11:16 DCW (Rec: 09/03/21 11:58 DCW [id number]) Out-Patient Physical Therapy Visit Information Visit Information Visit Type Treatment Note Visit Note Pt had to leave early to meet sherron at his vehicle. Visit Start Time 11:16 Visit Stop Time 11:50 Total Visit Minutes 34 Visit Number 12 Number of AGRICULTURE ENGINEER Visits 0 Evaluation Information Evaluation Date 07/11/21 PT-OP-B Current Condition Start: 07/11/21 16:20 Freq: Status: Active Protocol: Document 07/11/21 12:00 DCW (Rec: 07/11/21 16:39 DCW [id number]) Current Condition History of Current Condition Onset Date 06/23/21 Current Complaints Pain and stiffness s/p L TKA History of Current Condition Pt is a 45 year old male presenting 18 days s/p L TKA. Pt reports that he injured his knees when he was [age] years olf, and then at the age of 14, was wrestling and injured them again, and was found to have had his knee cartilage fallen off. 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 Pt underwent a R TKA in March , notes he did PT for a bit, but was too busy with his kids to be able to follow- through, and put in a lot of work rehabbing himself. Notes he does have full ROM in his R , however bilaterally still has fairly severe quad atrophy , mainly due to the decades of having very poor knee extension due to joint degeneration. 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 Pt using bilateral axillary crutches, as he is unable to support himself with the right leg now that the left leg has undergone a TKA. Pt reports after his right TKA, his surgeon noted that his knee was the worst he had ever seen, however found out after his left TKA that the left was somehow even worse. 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 Notes his pain is almost unbearable at night , reporting a 9/10 pain which typically limits his sleep to ~1 hour, but the past two nights has been taking Ambien, which has allowed him to get 3-4 hours of sleep, which feels like I've dies and gone to [facility]. Prior Treatments and Tests Prior PT following R TKA 4 months ago Treatment Goals Patient/Caregiver Goals To be able to get around better playing with his kids PT-OP-C Subjective Start: 07/11/21 16:20 Freq: Status: Active Protocol: Document 09/03/21 11:16 DCW (Rec: 09/03/21 11:58 DCW [id number]) OP-PT Subjective Patient Comments Patient Comments Pt continues to c/o soreness along lateral L knee PT-OP-H Neuro Start: 07/11/21 16:20 Freq: Status: Active Protocol: Document 07/11/21 12:00 DCW (Rec: 07/11/21 16:39 DCW [id number]) Muscle Tone Tone Assessment Bilateral quads Extensor Tone Description Moderate Hypotonicity Muscle Tone Comments Moderate quad atrophy bilaterally PT-OP-J Posture/Palpation/Skin Start: 07/11/21 16:39 Freq: Status: Active Protocol: Document 07/11/21 12:00 DCW (Rec: 07/11/21 16:41 DCW [id number]) Skin Assessment Circumference Measurement 3 Location 10 cm superior to L knee joint Measurement (Centimeters) 46.1 Comments 42.5 2 Location L knee joint line Measurement (Centimeters) 56.2 Comments R=42.1 1 Location 10 cm inferior to L knee joint Measurement (Centimeters) 46.9 Comments R=35.0 Incisional Assessment Incision Appearance/Comments CDI, mild puckering along length of incision PT-OP-K Range of Motion Start: 07/11/21 16:20 Freq: Status: Active Protocol: Document 07/11/21 12:00 DCW (Rec: 07/11/21 16:39 DCW [id number]) Knee Goniometric Range of Motion Knee Right Knee ROM WFL Yes Patient Position Supine Flexion Active (degrees) 123 Extension Active (degrees) 0 Left Knee ROM WFL No Patient Position Supine Flexion Active (degrees) 93 Extension Active (degrees) 8 PT-OP-M Strength Start: 07/11/21 16:20 Freq: Status: Active Protocol: Document 07/11/21 12:00 DCW (Rec: 07/11/21 16:39 DCW [id number]) Knee Strength Knee Manual Muscle Testing Right Flexion (S2) 3 Fair Extension (L3) 4 Good Left Flexion (S2) 2+ Poor+ Extension (L3) 2- Poor- PT-OP-Q Treatments Start: 07/11/21 16:20 Freq: Status: Active Protocol: Document 09/03/21 11:16 DCW (Rec: 09/03/21 11:58 DCW [id number]) Cardio Equipment Recumbent Bicycle Duration (Minutes) 6 Resistance 4 Seat Position 6 Gym Equipment Shuttle Recovery Unilateral Squats Resistance 62# Bilateral Squats Resistance 100# Therapeutic Exercises Supine Exercises 3 Supine Exercise Name ITB Stretch /c strap Side bilateral 2 Supine Exercise Name HS stretch /c strap Side bilateral Sitting Exercises 2 Sitting Exercise Name HS curl Side bilateral Resistance Lv 3 Equipment Used T-band 1 Sitting Exercise Name LAQ Side bilateral Resistance 10# Standing Exercises 2 Standing Exercise Name Step-ups Side bilateral Equipment Used 6 step 1 Standing Exercise Name TKE Side bilateral Resistance Lv 2 Equipment Used T-band Manual Therapy Treatment Taping 1 Body Location L ITB I-strip Treatment Focus Inhibition Type of Tape Kinesio Tape PT-OP-R Modalities Start: 07/11/21 16:20 Freq: Status: Active Protocol: Document 07/23/21 13:45 DCW (Rec: 07/23/21 14:28 DCW [id number]) Electric Stimulation Electric Stimulation [place]an Stimulation Body Location B Quad Duration (Minutes) 10 Intensity 31 Frequency 4 on/12 off Patient Position Hooklying Comments SAQ PT-OP-T Assessment and Plan Start: 07/11/21 16:20 Freq: Status: Active Protocol: Document 09/03/21 11:16 DCW (Rec: 09/03/21 11:58 DCW [id number]) Physical Therapy Assessment Impairments Impairments Activity Tolerance,Balance, Functional Activities, Functional Mobility,Gait,Pain, ROM,Soft Tissue Mobility, Strength,Tone Goals Four Impairment Pt ambulates with bilateral axillary crutches Halfway Goal (LTG) Pt to ambulate independently without an assistive device at least 500' to demonstrate increased independence for community ambulation, enabling him to interact more easily with his children LTG Duration 09/10/21 Three Impairment Pt exhibits moderate quad atrophy bilaterally Halfway Goal (LTG) Pt to display only mild quad atrophy bilaterally to improve gait and reduce instances of knee buckling LTG Duration 09/10/21 Two Impairment Limited ROM Halfway Goal (LTG) Increased L ROM to 0?-120? to enable him to perform daily activities without any range of motion restriction LTG Duration 09/10/21 One Impairment Pt does not have an appropriate home exercise program Short Term Goal (STG) Pt to be independent and compliant with an appropriate HEP STG Duration 08/11/21 Assessment Summary Assessment Pt getting frustrated by ITB tendonitis, did some ITB/HS stretching today in an attempt to loosen it up. Physical Therapy Plan Frequency and Duration Frequency of Treatment 2x/Week Duration of Treatment Two months Plan of Care Start Date 07/11/21 Plan of Care End Date 09/10/21 Therapeutic Interventions Therapeutic Interventions Aquatic Therapy,Balance Training,Gait Training,Home Exercise Program,Joint Mobilizations,Manual Therapy, Neuromuscular Re-education, Patient/Caregiver Education, Self-Care/Home Management,Soft Tissue Mobilization, Therapeutic Activities, Therapeutic Exercises Modalities Cold Pack/Ice Massage,Electric Stimulation,Hot Packs, Ultrasound Next Visit Focus/Plan Next Note Type Treatment Note Next Visit Plan ROM, Strengthening, [place]an stim, Scar mobs
--- NOTE | 2021-12-11 09:57 | PT.OPDS ---
Current Diagnoses Pain in left knee (09/03/21) Stiffness of left knee, not elsewhere classified (09/03/21) Presence of left artificial knee joint (09/03/21) Visit Care Team Role Provider Type JANETT Delacruz Primary Care Provider Advanced Partridge Farmer Specialty: Family Practice Address: [address] [place] [address], [id number] Email: [email or web address] Miguel A Parikh MD Attending Provider Non-Staff Referring Provider Specialty: Medical Address: [address] [place] [address], [id number] Email: Visit Number Visit Number 12 Discharge Summary PT-OP-B Current Condition Start: 07/11/21 16:20 Freq: Status: Active Protocol: Document 07/11/21 12:00 DCW (Rec: 07/11/21 16:39 DCW [id number]) Current Condition History of Current Condition Onset Date 06/23/21 Current Complaints Pain and stiffness s/p L TKA History of Current Condition Pt is a 45 year old male presenting 18 days s/p L TKA. Pt reports that he injured his knees when he was [age] years olf, and then at the age of 14, was wrestling and injured them again, and was found to have had his knee cartilage fallen off. 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 Pt underwent a R TKA in March , notes he did PT for a bit, but was too busy with his kids to be able to follow- through, and put in a lot of work rehabbing himself. Notes he does have full ROM in his R , however bilaterally still has fairly severe quad atrophy , mainly due to the decades of having very poor knee extension due to joint degeneration. 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 Pt using bilateral axillary crutches, as he is unable to support himself with the right leg now that the left leg has undergone a TKA. Pt reports after his right TKA, his surgeon noted that his knee was the worst he had ever seen, however found out after his left TKA that the left was somehow even worse. 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 Notes his pain is almost unbearable at night , reporting a 9/10 pain which typically limits his sleep to ~1 hour, but the past two nights has been taking Ambien, which has allowed him to get 3-4 hours of sleep, which feels like I've dies and gone to [facility]. Prior Treatments and Tests Prior PT following R TKA 4 months ago Treatment Goals Patient/Caregiver Goals To be able to get around better playing with his kids PT-OP-C Subjective Start: 07/11/21 16:20 Freq: Status: Active Protocol: Document 09/03/21 11:16 DCW (Rec: 09/03/21 11:58 DCW [id number]) OP-PT Subjective Patient Comments Patient Comments Pt continues to c/o soreness along lateral L knee PT-OP-H Neuro Start: 07/11/21 16:20 Freq: Status: Active Protocol: Document 07/11/21 12:00 DCW (Rec: 07/11/21 16:39 DCW [id number]) Muscle Tone Tone Assessment Bilateral quads Extensor Tone Description Moderate Hypotonicity Muscle Tone Comments Moderate quad atrophy bilaterally PT-OP-J Posture/Palpation/Skin Start: 07/11/21 16:39 Freq: Status: Active Protocol: Document 07/11/21 12:00 DCW (Rec: 07/11/21 16:41 DCW [id number]) Skin Assessment Circumference Measurement 3 Location 10 cm superior to L knee joint Measurement (Centimeters) 46.1 Comments 42.5 2 Location L knee joint line Measurement (Centimeters) 56.2 Comments R=42.1 1 Location 10 cm inferior to L knee joint Measurement (Centimeters) 46.9 Comments R=35.0 Incisional Assessment Incision Appearance/Comments CDI, mild puckering along length of incision PT-OP-K Range of Motion Start: 07/11/21 16:20 Freq: Status: Active Protocol: Document 07/11/21 12:00 DCW (Rec: 07/11/21 16:39 DCW [id number]) Knee Goniometric Range of Motion Knee Right Knee ROM WFL Yes Patient Position Supine Flexion Active (degrees) 123 Extension Active (degrees) 0 Left Knee ROM WFL No Patient Position Supine Flexion Active (degrees) 93 Extension Active (degrees) 8 PT-OP-M Strength Start: 07/11/21 16:20 Freq: Status: Active Protocol: Document 07/11/21 12:00 DCW (Rec: 07/11/21 16:39 DCW [id number]) Knee Strength Knee Manual Muscle Testing Right Flexion (S2) 3 Fair Extension (L3) 4 Good Left Flexion (S2) 2+ Poor+ Extension (L3) 2- Poor- PT-OP-T Assessment and Plan Start: 07/11/21 16:20 Freq: Status: Active Protocol: Document 12/11/21 09:56 DCW (Rec: 12/11/21 09:57 DCW [id number]) Physical Therapy Assessment Assessment Summary Assessment Pt canceled last four scheduled visits, reporting he would be out of town, and would call back to reschedule. Pt did not reschedule, has now not been seen in more than three months. Pt will be discharged from skilled PT at this time, will require a new referral in order to return Physical Therapy Plan Discharge Physical Therapy Discharge Reasons No Longer Attending PT Next Visit Focus/Plan Next Note Type Discharge Summary
== END 2021-12-15 13:38 ==
LOC: PHYS 11:15
PROVIDERS: PCP Nurse Practitioner; Referring Provider Orthopaedic Surgery Orthopaedic Trauma; Visit Provider Orthopaedic Surgery Orthopaedic Trauma
DX: Z96.652 Presence of left artificial knee joint (principal); M25.662 Stiffness of left knee, not elsewhere classified; M25.562 Pain in left knee
CPT/HCPCS: 97014; 97032; 97110; 97140; 97163; G0283

== ENCOUNTER → 2024-04-20 12:49 | Outpatient (CLI) | payer OTHER, SELFPAY ==
--- NOTE | 2024-04-20 12:50 | DI.RAD.S_ITS ---
PROCEDURE: XR FOOT LT MIN 3V INDICATIONS: Left heel pain TECHNIQUE: 3 views of the foot were acquired. COMPARISON: None. FINDINGS: Bones: Small posterior calcaneal enthesophyte with adjacent heterotopic ossification, representing prior injury. No acute fracture or dislocation. Joint spaces are well maintained. IMPRESSION: No acute bony abnormality. Dictated by: Brielle Valdivia M.D. on 04/20/2024 at 18:02 Approved by: Brielle Valdivia M.D. on 04/20/2024 at 18:04
== END ==
PROVIDERS: PCP Nurse Practitioner; Referring Provider Nurse Practitioner Family; Visit Provider Nurse Practitioner Family
DX: M79.672 Pain in left foot (principal)
CPT/HCPCS: 73630